=== PATIENT | female | born 1930 | race Caucasian/White ===

== ENCOUNTER 2016-07-21 18:55 | Inpatient (IN) | payer OTHER ==
[~2016-07-21] VITALS: Ht 147.3 cm; Wt 49.3 kg
[~2016-07-21 18:55] MED LIST: ASPI81TA28 PO; LPT/20 PO; MULT-513 PO; OMEG10007 PO
[2016-07-21] MEDS ORDERED: SODIUM CHLORIDE 0.9% 1000ML 500 ML IV STA (20:16)
[2016-07-21] MEDS ORDERED: ONDANSETRON INJ 2 MG/ML 2 ML VIAL IV STA (20:16)
[2016-07-21] MEDS ORDERED: SODIUM CHLORIDE 0.9% 1000ML 1,000 ML IV STA (20:16)
[2016-07-21] MEDS ORDERED: ASPI325T4 PO (20:17)
--- NOTE | 2016-07-21 20:26 | EMERGENCY ROOM VISIT NOTE ---
History Report prepared by Charly: Alexander Guajardo Under the Supervision of: Dr. Noble Gilliland M.D. First contact with patient: 20:12 Chief Complaint: NAUSEA Stated Complaint: NAUSEA, Nursing Triage Summary: Patient reports nausea & abdominal pain that started this am after breakfast. Vomitted x1 in late afternoon. Reports that emesis consisted of food & liquid. Denies any blood. Reports intermittent abdominal pain that continues. BM x1 today-medium size & semi-solid. States, "I had to strain a bit." Patient states , "I have been constipated all my life." Unable to remember last time took laxative. Abdomen appears slightly distended, soft & BM hypoactive x4 quads. Tender to palpation x4 quads. PMHx- cholecystectomy & high cholesterol Patient lives alone in apartment. Kathy helps her with ADL's. Uses walker to ambulate. Arrived BLS History of Present Illness The patient is an 85 year old female who presents to the Emergency Room via ambulance with complaints of persistent vomiting beginning several hours prior to arrival. She currently rates her discomfort as a 5/10 in severity. The patient associates nausea and general abdominal discomfort with today's symptoms. She states she was at [facility] this morning, when she vomited. The patient notes she has not eaten or drank much today. She states she has a history of constipation issues. The patient notes she felt fine yesterday. She denies falling today, a cough, urinary symptoms, fever, and chills. She states she lives alone but has people that check in on her regularly. 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 A total of 10 systems reviewed and were otherwise negative. Past Medical & Surgical Medical Problems: (1) Dyslipidemia (2) History of small bowel obstruction (3) Left ventricular diastolic dysfunction Surgical Problems: (1) H/O colonoscopy (2) S/P cataract surgery (3) S/P cholecystectomy (4) S/P dilation and curettage Family History Patient reports no known family medical history. Social History Smoking Status: Never Smoker Alcohol Use: none Drug Use: none Marital Status: Housing Status: lives alone Occupation Status: retired Current/Historical Medications Scheduled Aspirin (Aspirin), 325 MG PO QAM Atorvastatin (Atorvastatin Calcium), 20 MG PO DAILY Fish Oil ([place]-3), 1 CAP PO DAILY Allergies Coded Allergies: No Known Allergies (Unverified , 07/21/16) Physical Exam Vital Signs Date Time Temp Pulse Resp B/P Pulse Ox O2 Delivery O2 Flow Rate FiO2 07/21/16 23:00 86 20 167/77 94 Room Air 07/21/16 22:00 73 20 163/55 95 Room Air 07/21/16 21:28 80 18 204/77 97 Room Air 07/21/16 20:52 74 07/21/16 20:30 76 15 191/103 100 Room Air 07/21/16 20:00 78 22 164/78 98 Room Air 07/21/16 19:30 73 16 182/72 98 Room Air 07/21/16 19:12 73 18 176/75 99 Room Air 07/21/16 19:00 36.6 74 18 174/105 99 Room Air Physical Exam GENERAL: Patient is in no acute distress. HEENT: No acute trauma, normocephalic atraumatic, mucous membranes dry, no nasal congestion, no scleral icterus. NECK: No stridor, no adenopathy, no meningismus, trachea is midline. LUNGS: Clear to auscultation bilaterally, no wheeze, no rhonchi, breath sounds equal. HEART: 2/6 systolic murmur with a regular rate and rhythm. ABDOMEN: Mildly diffusely tender. Some abdominal distension noted. Soft, bowel sounds positive, no hernias, no peritonitis. EXTREMITIES: No cyanosis or edema, full range of motion of all the joints without pain or difficulty, no signs for acute trauma. NEUROLOGIC: Oriented x 3, no acute motor or sensory deficits, no focal weakness. SKIN: No rash, no jaundice, no diaphoresis. Medical Decision & Procedures ER Provider Diagnostic Interpretation: X ray results and stated below per my interpretation and radiologist interpretation. Other radiology results and stated below per my review and radiologist interpretation: SINGLE VIEW CHEST CLINICAL HISTORY: Generalized abdominal pain. FINDINGS: An AP, portable, upright chest radiograph is compared to study dated 08/19/15. The examination is degraded by portable technique and patient rotation. The cardiomediastinal silhouette is unremarkable. There is atherosclerotic calcification of the thoracic aorta. Chronic interstitial thickening is unchanged from previous. No airspace consolidation, large pleural effusion, or pneumothorax is seen. Biapical scarring is noted. The skeletal structures are osteopenic. Degenerative change and scoliosis are noted in the thoracolumbar spine. Cholecystectomy clips are identified in the right upper quadrant. IMPRESSION: No acute cardiopulmonary abnormality. Electronically signed by: Noble Sorto M.D. 07/21/2016 8:[address] SCAN OF THE ABDOMEN AND PELVIS WITH IV CONTRAST CLINICAL HISTORY: Generalized abdominal pain. COMPARISON STUDY: Abdominal CT dated 08/18/15. TECHNIQUE: Following the IV administration of 120 cc of Optiray 320, CT scan of the abdomen and pelvis is performed from the lung bases to the proximal femora. Images are reviewed in the axial, sagittal, and coronal planes. IV contrast was administered without complication. Automated dose control exposure was utilized. CT DOSE: 274.05 mGy.cm FINDINGS: Lung bases: The heart is mildly enlarged and without pericardial effusion. The coronary arteries, mitral annulus, and aortic valve leaflets are densely calcified. Evaluation of the lung bases is degraded by motion artifact. The lung bases are grossly clear noting dependent atelectasis. Liver: The contrast-enhanced liver is normal in size, contour, and attenuation. There is mild central intrahepatic biliary ductal dilatation. The hepatic veins and portal veins are patent. Gallbladder: Surgically absent noting clips in the gallbladder fossa. Spleen: Normal in size and attenuation. Pancreas: Atrophic and grossly unremarkable. Adrenal glands: Unremarkable. Kidneys: The contrast enhanced kidneys are atrophic and without hydronephrosis. There are small bilateral extrarenal pelvises. The kidneys enhance symmetrically. Abdominal vasculature: The abdominal aorta is normal in course and caliber noting advanced atherosclerotic calcification. Bowel: There is a small hiatal hernia. The stomach and duodenum otherwise normal in configuration. Fluid fills the distal esophagus. The stomach and proximal small bowel are distended and fluid-filled. Small bowel loops measure up to 3.7 cm in diameter. A transition point is identified in the right mid abdomen on axial image #177. The distal small bowel is decompressed and the appearance is consistent with a small bowel obstruction. There is a small volume of interloop fluid. No focally thick walled loops identified. There is no pneumatosis intestinalis or portal venous gas. There is rectosigmoid fecal impaction moderate constipation is observed in the left colon. The right colon is decompressed. There is mild colonic diverticulosis without CT evidence of acute diverticulitis The appendix is not visualized. Peritoneum: There is no intraperitoneal free air or abdominal ascites. Lymphadenopathy: None. Pelvic viscera: The bladder is distended and grossly unremarkable. Calcified uterine fibroids are identified. No adnexal lesion is seen. Skeletal structures: The skeletal structures are osteopenic. There is moderate lumbosacral spondylosis. There are compression deformities of L3 and L4. No lytic or blastic lesions are seen. Arthritic change is noted in the hips. IMPRESSION: 1. Findings are consistent with high-grade small bowel obstruction. A transition point is identified in the right mid abdomen and this is likely on the basis of adhesions. Surgical consultation is advised. 2. There is a small volume of interloop fluid. No focally thick walled bowel loops are identified. There is no pneumatosis intestinalis comment intraperitoneal free air, or portal venous gas. 3. There is rectosigmoid fecal impaction. 4. There is fluid present within the distal esophagus. Note that this may place the patient at risk for aspiration. 5. Additional changes as above. Electronically signed by: Noble Sorto M.D. 07/21/2016 10:51 PM Laboratory Results Test 07/21/16 21:10 07/21/16 22:30 Immature Granulocyte % (Auto) 0.3 % White Blood Count 7.10 K/uL (4.8-10.8) Red Blood Count 4.51 M/uL (4.2-5.4) Hemoglobin 14.5 g/dL (12.0-16.0) Hematocrit 40.9 % (37-47) Mean Corpuscular Volume 90.7 fL (80-100) Mean Corpuscular Hemoglobin 32.2 pg (25-34) Mean Corpuscular Hemoglobin Concent 35.5 g/dl (32-36) Platelet Count 189 K/uL (130-400) Mean Platelet Volume 11.4 fL (7.4-10.4) Neutrophils (%) (Auto) 81.7 % Lymphocytes (%) (Auto) 13.1 % Monocytes (%) (Auto) 4.8 % Eosinophils (%) (Auto) 0.0 % Basophils (%) (Auto) 0.1 % Neutrophils # (Auto) 5.80 K/uL (1.4-6.5) Lymphocytes # (Auto) 0.93 K/uL (1.2-3.4) Monocytes # (Auto) 0.34 K/uL (0.11-0.59) Eosinophils # (Auto) 0.00 K/uL (0-0.5) Basophils # (Auto) 0.01 K/uL (0-0.2) Immature Granulocyte # (Auto) 0.02 K/uL (0.00-0.02) Total Bilirubin 0.7 mg/dl (0.2-1) Aspartate Amino Transf (AST/SGOT) 25 U/L (15-37) Alanine Aminotransferase (ALT/SGPT) 30 U/L (12-78) Alkaline Phosphatase 114 U/L (45-117) Troponin I < 0.015 ng/ml (0-0.045) Total Protein 7.6 gm/dl (6.4-8.2) Albumin 4.0 gm/dl (3.4-5.0) Globulin 3.6 gm/dl (2.5-4.0) Albumin/Globulin Ratio 1.1 (0.9-2) Lipase 119 U/L (73-393) Urine Color YELLOW Urine Appearance CLOUDY (CLEAR) Urine pH 8.0 (4.5-7.5) Urine Specific [place] 1.003 (1.000-1.030) Urine Protein NEG (NEG) Urine Glucose (UA) NEG (NEG) Urine Ketones 1+ (NEG) Urine Occult Blood NEG (NEG) Urine Nitrite NEG (NEG) Urine Bilirubin NEG (NEG) Urine Urobilinogen NEG (NEG) Urine Leukocyte Esterase NEG (NEG) Urine WBC (Auto) 1-5 /hpf (0-5) Urine RBC (Auto) 0-4 /hpf (0-4) Urine Hyaline Casts (Auto) 1-5 /lpf (0-5) Urine Epithelial Cells (Auto) 5-10 /lpf (0-5) Urine Bacteria (Auto) NEG (NEG) Laboratory results reviewed by me. Medications Administered Medications (Trade) Dose Ordered Sig/Wilver Route Start Time Stop Time Status Last Admin Dose Admin Sodium Chloride (Nss 1000ml) 500 ml @ 999 mls/hr Q31M STAT IV 07/21/16 20:16 07/21/16 20:46 DC 07/21/16 21:27 999 MLS/HR Ondansetron HCl 4 mg 4 mg NOW STAT IV 07/21/16 20:16 07/21/16 20:19 DC 07/21/16 21:27 4 MG Sodium Chloride (Nss 1000ml) 1,000 ml @ 125 mls/hr Q8H STAT IV 07/21/16 20:16 07/22/16 01:24 DC 07/21/16 21:35 125 MLS/HR ECG Indication: vomiting Rate (beats per minute): 72 Rhythm: normal sinus Findings: RBBB, no ectopy Comparison ECG Date: 12/15/2013 Change: RBBB is new. ED Course 2011: The patient was evaluated in room B4B. A complete history and physical exam was performed. 2016: Ordered Sodium Chloride 1,000 ml @ 125 mls/hr IV, Zofran Inj 4 mg IV, Sodium Chloride 500 ml @ 999 mls/hr IV. 2301: Reevaluated the patient at this time and updated her. 2303: I spoke to CONSTANTINE Martinez (General Surgery) about the patient's case , and he states the patient can go to the medicine service. He will see the patient in the morning. 2322: I spoke to Susan Morel (Hospitalist) about the patient's case, and he will follow the patient for further evaluation. Medical Decision The differential diagnoses include but are not limited to: bowel obstruction, constipation, dehydration, electrolyte imbalance, UTI, viral illness, anemia, pneumonia, cardiac ischemia. There is no leukocytosis or concerning anemia. No significant electrolyte abnormality, kidney failure or hepatitis. There is no pancreatitis. Chest film shows no free air or pneumonia. EKG shows a sinus rhythm, no acute ischemia. Cardiac enzyme testing times one is not consistent with acute cardiac injury. Abdominal and pelvis CT shows a small bowel obstruction. Urinalysis does not show infection. The patient received IV Zofran and IV saline, she did not require anything for pain. The patient had an NG tube placed given the findings. I talked with general surgery, I did talk with general medicine. I spoke with case management. I went over all findings with the patient and family. Admission/observation is warranted. Consults Time Called: [phone] Consulting Physician: CONSTANTINE Martinez (General Surgery) Returned Call: [phone] I spoke to DONALD MartinezG (General Surgery) about the patient's case, and he states the patient can go to the medicine service. He will see the patient in the morning. Additional Consults: Time Called: 0 Consulted Physician: Susan Morel (Hospitalist) Returned Call: [phone] Additional Comments: I spoke to Susan Morel (Hospitalist) about the patient's case, and he will follow the patient for further evaluation. Impression Primary Impression: Small bowel obstruction Scribe Attestation The scribe's documentation has been prepared under my direction and personally reviewed by me in its entirety. I confirm that the note above accurately reflects all work, treatment, procedures, and medical decision making performed by me. Departure Information Dispostion Being Evaluated By Hospitalist (Susan Morel (Hospitalist)) Referrals Mike Lopez M.D. (PCP)
[2016-07-21] MEDS ORDERED: OPTIRAY 320 IV PRN (20:30)
--- NOTE | 2016-07-21 20:40 | DIAGNOSTIC IMAGING REPORT ---
SINGLE VIEW CHEST CLINICAL HISTORY: Generalized abdominal pain. FINDINGS: An AP, portable, upright chest radiograph is compared to study dated 08/19/15. The examination is degraded by portable technique and patient rotation. The cardiomediastinal silhouette is unremarkable. There is atherosclerotic calcification of the thoracic aorta. Chronic interstitial thickening is unchanged from previous. No airspace consolidation, large pleural effusion, or pneumothorax is seen. Biapical scarring is noted. The skeletal structures are osteopenic. Degenerative change and scoliosis are noted in the thoracolumbar spine. Cholecystectomy clips are identified in the right upper quadrant. IMPRESSION: No acute cardiopulmonary abnormality. Electronically signed by: Noble Sorto M.D. 07/21/2016 8:39 PM Dictated Date/Time: 07/21/2016 8:38 PM
[2016-07-21 21:23] LABS: BASO % 0.1 %; BASO ABS # 0.01 K/uL (0-0.2); COMPLETE YES; HEMATOCRIT 40.9 % (37-47); IG% 0.3 %; LYMPH % 13.1 %; LYMPH ABS # 0.93 K/uL (1.2-3.4); MEAN CELL VOLUME 90.7 fL (80-100); MEAN CORPUSCULAR HEMOGLOBIN 32.2 pg (25-34); MEAN CORPUSCULAR HGB CONC 35.5 g/dl (32-36); MEAN PLATELET VOLUME 11.4 fL (7.4-10.4); MONO % 4.8 %; NEUT % 81.7 %; PLATELET COUNT 189 K/uL (130-400); RED BLOOD COUNT 4.51 M/uL (4.2-5.4)
[2016-07-21 21:42] LABS: ALT/SGPT 30 U/L (12-78); AST/SGOT 25 U/L (15-37); BLOOD UREA NITROGEN 20 mg/dl (7-18); BUN/CREATININE RATIO 26.7 (10-20); CALCIUM 10.1 mg/dl (8.5-10.1); CARBON DIOXIDE 29 mmol/L (21-32); CHLORIDE 98 mmol/L (98-107); CREATININE 0.76 mg/dl (0.60-1.20); GLUCOSE 107 mg/dl (70-99); SODIUM 139 mmol/L (136-145)
[2016-07-21 21:46] LABS: ALB/GLOB RATIO 1.1 (0.9-2); ALKALINE PHOSPHATASE 114 U/L (45-117)
[2016-07-21 22:50] LABS: MANUAL MICROSCOPIC REQUIRED? NO; REVIEW REQ? NO; URINE APPEARANCE CLOUDY (CLEAR); URINE BILIRUBIN NEG (NEG); URINE COLOR YELLOW; URINE NITRITE NEG (NEG); URINE SPECIFIC GRAVITY 1.003 (1.000-1.030); UROBILINOGEN NEG (NEG); ZZUR CULT IF INDIC CLEAN CATCH NO
--- NOTE | 2016-07-21 22:53 | DIAGNOSTIC IMAGING REPORT ---
CT SCAN OF THE ABDOMEN AND PELVIS WITH IV CONTRAST CLINICAL HISTORY: Generalized abdominal pain. COMPARISON STUDY: Abdominal CT dated 08/18/15. TECHNIQUE: Following the IV administration of 120 cc of Optiray 320, CT scan of the abdomen and pelvis is performed from the lung bases to the proximal femora. Images are reviewed in the axial, sagittal, and coronal planes. IV contrast was administered without complication. Automated dose control exposure was utilized. CT DOSE: 274.05 mGy.cm FINDINGS: Lung bases: The heart is mildly enlarged and without pericardial effusion. The coronary arteries, mitral annulus, and aortic valve leaflets are densely calcified. Evaluation of the lung bases is degraded by motion artifact. The lung bases are grossly clear noting dependent atelectasis. Liver: The contrast-enhanced liver is normal in size, contour, and attenuation. There is mild central intrahepatic biliary ductal dilatation. The hepatic veins and portal veins are patent. Gallbladder: Surgically absent noting clips in the gallbladder fossa. Spleen: Normal in size and attenuation. Pancreas: Atrophic and grossly unremarkable. Adrenal glands: Unremarkable. Kidneys: The contrast enhanced kidneys are atrophic and without hydronephrosis. There are small bilateral extrarenal pelvises. The kidneys enhance symmetrically. Abdominal vasculature: The abdominal aorta is normal in course and caliber noting advanced atherosclerotic calcification. Bowel: There is a small hiatal hernia. The stomach and duodenum otherwise normal in configuration. Fluid fills the distal esophagus. The stomach and proximal small bowel are distended and fluid-filled. Small bowel loops measure up to 3.7 cm in diameter. A transition point is identified in the right mid abdomen on axial image #177. The distal small bowel is decompressed and the appearance is consistent with a small bowel obstruction. There is a small volume of interloop fluid. No focally thick walled loops identified. There is no pneumatosis intestinalis or portal venous gas. There is rectosigmoid fecal impaction moderate constipation is observed in the left colon. The right colon is decompressed. There is mild colonic diverticulosis without CT evidence of acute diverticulitis The appendix is not visualized. Peritoneum: There is no intraperitoneal free air or abdominal ascites. Lymphadenopathy: None. Pelvic viscera: The bladder is distended and grossly unremarkable. Calcified uterine fibroids are identified. No adnexal lesion is seen. Skeletal structures: The skeletal structures are osteopenic. There is moderate lumbosacral spondylosis. There are compression deformities of L3 and L4. No lytic or blastic lesions are seen. Arthritic change is noted in the hips. IMPRESSION: 1. Findings are consistent with high-grade small bowel obstruction. A transition point is identified in the right mid abdomen and this is likely on the basis of adhesions. Surgical consultation is advised. 2. There is a small volume of interloop fluid. No focally thick walled bowel loops are identified. There is no pneumatosis intestinalis comment intraperitoneal free air, or portal venous gas. 3. There is rectosigmoid fecal impaction. 4. There is fluid present within the distal esophagus. Note that this may place the patient at risk for aspiration. 5. Additional changes as above. Electronically signed by: Noble Sorto M.D. 07/21/2016 10:51 PM Dictated Date/Time: 07/21/2016 10:42 PM
--- NOTE | 2016-07-21 23:35 | History and Physical ---
History & Physical Date & Time of Service: Jul 21, 2016 at 23:35 . Chief Complaint: abdominal pain, nausea, vomiting . Primary Care Physician: . History of Present Illness Source: patient, clinic records, hospital records 85 YO female followed by Dr. Elvia Carney. Admitted for small bowel obstruction July 2015. SBO attributed to adhesions from prior abdominal surgery. Bowel obstruction resolved with conservative management. Patient presented to ED [facility] with abdominal distention, nausea, vomiting. She is uncertain about the exact onset of symptoms- either this morning or perhaps yesterday. No hematemesis. Last bowel movement 1-2 days ago; no melena or hematochezia. She did not try any medications at home for relief of her symptoms. Abdominal distention and nausea have been constant during the day. . Past Medical/Surgical History Chronic and Resolved Medical Problems: (1) Dyslipidemia Status: Chronic (2) History of small bowel obstruction Permanent Comment: Jul 2015. Resolved with conservative management (NGT, bowel rest). Status: Chronic (3) Left ventricular diastolic dysfunction Status: Chronic Surgical Problems: (1) H/O colonoscopy Status: Chronic (2) S/P cataract surgery Status: Chronic (3) S/P cholecystectomy Status: Chronic (4) S/P dilation and curettage Status: Chronic . Family History MOTHER Arthritis Social History Smoking Status: Never Smoker Alcohol Use: none Drug Use: none Marital Status: Housing status: lives alone Occupational Status: retired Immunizations History of Influenza Vaccine: Yes Multi-Drug Resistant Organisms History of MDRO: No Allergies Coded Allergies: No Known Allergies (Unverified , 07/21/16) Home Medications Scheduled Aspirin (Aspirin), 325 MG PO QAM Atorvastatin (Atorvastatin Calcium), 20 MG PO DAILY Fish Oil ([place]-3), 1 CAP PO DAILY Review of Systems Constitutional: No fever, No weight loss Eyes: No diplopia, No worsening of vision ENT: + hearing loss, No nasal symptoms, No sore throat Respiratory: No cough, No shortness of breath Cardiovascular: No chest pain, No edema Abdomen: + problem reported (as noted above) Musculoskeletal: + joint pain Genitourinary - Female: No dysuria, No hematuria Endocrine: No excessive thirst, No excessive urination Hematologic / Lymphatic: No abnormal bleeding/bruising, No swollen lymph nodes Integumentary: No itch, No new/changing skin lesions, No rash Physical Exam Vital Signs Date Time Temp Pulse Resp B/P Pulse Ox O2 Delivery O2 Flow Rate FiO2 07/21/16 21:28 80 18 204/77 97 Room Air 07/21/16 20:52 74 07/21/16 20:30 76 15 191/103 100 Room Air 07/21/16 20:00 78 22 164/78 98 Room Air 07/21/16 19:30 73 16 182/72 98 Room Air 07/21/16 19:12 73 18 176/75 99 Room Air 07/21/16 19:00 36.6 74 18 174/105 99 Room Air General Appearance: + moderate distress, + thin Head: normocephalic, atraumatic Eyes: normal inspection, PERRL, EOMI, sclerae normal, + pertinent finding ( conjunctivae pink) ENT: normal ENT inspection, + pertinent finding (hard of hearing) Neck: supple, no adenopathy, thyroid normal, no JVD, trachea midline Respiratory/Chest: lungs clear, no respiratory distress, no accessory muscle use Cardiovascular: regular rate, rhythm, no edema, no gallop, no JVD Abdomen/GI: + pertinent finding (quiet bowel sounds, moderately distended, soft , diffuse mild tenderness without rebound or guarding) Extremities/Musculoskelatal: normal inspection, no calf tenderness, normal capillary refill, no pedal edema Neurologic/Psych: wrapper dipper II-XII nml as tested (PERRL, EOMI), alert, normal mood/ affect, + disoriented (mild confusion) Skin: normal color, warm/dry, no rash Lymphatic: no adenopathy Diagnostics Laboratory Results Results Past 24 Hours Test 07/21/16 21:10 07/21/16 22:30 Range/Units White Blood Count 7.10 4.8-10.8 K/uL Red Blood Count 4.51 4.2-5.4 M/uL Hemoglobin 14.5 12.0-16.0 g/dL Hematocrit 40.9 37-47 % Mean Corpuscular Volume 90.7 80-100 fL Mean Corpuscular Hemoglobin 32.2 25-34 pg Mean Corpuscular Hemoglobin Concent 35.5 32-36 g/dl Platelet Count 189 130-400 K/uL Mean Platelet Volume 11.4 7.4-10.4 fL Neutrophils (%) (Auto) 81.7 % Lymphocytes (%) (Auto) 13.1 % Monocytes (%) (Auto) 4.8 % Eosinophils (%) (Auto) 0.0 % Basophils (%) (Auto) 0.1 % Neutrophils # (Auto) 5.80 1.4-6.5 K/uL Lymphocytes # (Auto) 0.93 1.2-3.4 K/uL Monocytes # (Auto) 0.34 0.11-0.59 K/uL Eosinophils # (Auto) 0.00 0-0.5 K/uL Basophils # (Auto) 0.01 0-0.2 K/uL RDW Standard Deviation 46.3 36.4-46.3 fL RDW Coefficient of Variation 14.0 11.5-14.5 % Immature Granulocyte % (Auto) 0.3 % Immature Granulocyte # (Auto) 0.02 0.00-0.02 K/uL Sodium Level 139 136-145 mmol/L Potassium Level 4.0 3.5-5.1 mmol/L Chloride Level 98 98-107 mmol/L Carbon Dioxide Level 29 21-32 mmol/L Anion Gap 12.0 3-11 mmol/L Blood Urea Nitrogen 20 7-18 mg/dl Creatinine 0.76 0.60-1.20 mg/dl Est Creatinine Clear Calc Drug Dose 37.0 ml/min Estimated GFR () 81.7 Estimated GFR (Non- 70.5 BUN/Creatinine Ratio 26.7 10-20 Random Glucose 107 70-99 mg/dl Calcium Level 10.1 8.5-10.1 mg/dl Total Bilirubin 0.7 0.2-1 mg/dl Aspartate Amino Transf (AST/SGOT) 25 15-37 U/L Alanine Aminotransferase (ALT/SGPT) 30 12-78 U/L Alkaline Phosphatase 114 45-117 U/L Troponin I < 0.015 0-0.045 ng/ml Total Protein 7.6 6.4-8.2 gm/dl Albumin 4.0 3.4-5.0 gm/dl Globulin 3.6 2.5-4.0 gm/dl Albumin/Globulin Ratio 1.1 0.9-2 Lipase 119 73-393 U/L Urine Color YELLOW Urine Appearance CLOUDY CLEAR Urine pH 8.0 4.5-7.5 Urine Specific [place] 1.003 1.000-1.030 Urine Protein NEG NEG Urine Glucose (UA) NEG NEG Urine Ketones 1+ NEG Urine Occult Blood NEG NEG Urine Nitrite NEG NEG Urine Bilirubin NEG NEG Urine Urobilinogen NEG NEG Urine Leukocyte Esterase NEG NEG Urine WBC (Auto) 1-5 0-5 /hpf Urine RBC (Auto) 0-4 0-4 /hpf Urine Hyaline Casts (Auto) 1-5 0-5 /lpf Urine Epithelial Cells (Auto) 5-10 0-5 /lpf Urine Bacteria (Auto) NEG NEG Diagnostic Radiology SINGLE VIEW CHEST IMPRESSION: No acute cardiopulmonary abnormality. Electronically signed by: Noble Sorto M.D. 07/21/2016 8:[address] SCAN OF THE ABDOMEN AND PELVIS WITH IV CONTRAST IMPRESSION: 1. Findings are consistent with high-grade small bowel obstruction. A transition point is identified in the right mid abdomen and this is likely on the basis of adhesions. Surgical consultation is advised. 2. There is a small volume of interloop fluid. No focally thick walled bowel loops are identified. There is no pneumatosis intestinalis comment intraperitoneal free air, or portal venous gas. 3. There is rectosigmoid fecal impaction. 4. There is fluid present within the distal esophagus. Note that this may place the patient at risk for aspiration. 5. Additional changes as above. Electronically signed by: Noble Sorto M.D. 07/21/2016 10:51 PM . Impression Assessment and Plan RECURRENT SMALL BOWEL OBSTRUCTION Probably due to underlying adhesions. NGT inserted in ED. General Surgery consulted- ED physician discussed case with surgeon contour sander. Bowel rest, IV fluids, analgesics PRN, anti-emetics PRN. HISTORY LV DIASTOLIC DYSFUNCTION No signs of CHF. Follow. ELEVATED BP's BP's high in ED. Probably episodic elevation due to GI symptoms. Follow. IV enalapril PRN. VTE PROPHYLAXIS No anticoagulation at this time in case surgical intervention necessary. SCD's. Ambulate. RESUSCITATION STATUS Full code. DISPOSITION Admit to Med-Surg Unit. Expected discharge to home. Family Medicine follow-up with Dr. Elvia Carney. . VTE Prophylaxis VTE Risk Assessment Done? Y/N: Yes Risk Level: Moderate Given or contraindicated: SCD's
[2016-07-21] MEDS ORDERED: ONDANSETRON INJ 2 MG/ML 2 ML VIAL ONE (23:45)
[2016-07-21] MEDS ORDERED: ONDANSETRON INJ 2 MG/ML 2 ML VIAL IV PRN (23:45)
[2016-07-22] MEDS ORDERED: ACETAMINOPHEN IV 100 ML IV PRN (00:45)
[2016-07-22 00:52] VITALS: BP 177/69; PULSE 82; TEMP 36.5; O2SAT 94
[2016-07-22] MEDS: D5W AND LACTATED RINGERS 1,000 ML IV SCH ×3 (01:42→16:32)
[2016-07-22 04:06] VITALS: BP 177/69; PULSE 82; TEMP 36.5; O2SAT 95; Ht 147.3 cm; Wt 49.3 kg
[2016-07-22 06:10] LABS: HEMATOCRIT 40.2 % (37-47); MEAN CELL VOLUME 90.7 fL (80-100); MEAN CORPUSCULAR HEMOGLOBIN 30.7 pg (25-34); MEAN CORPUSCULAR HGB CONC 33.8 g/dl (32-36); MEAN PLATELET VOLUME 11.9 fL (7.4-10.4); PLATELET COUNT 192 K/uL (130-400); RED BLOOD COUNT 4.43 M/uL (4.2-5.4); WHITE BLOOD COUNT 9.25 K/uL (4.8-10.8)
[2016-07-22 06:39] LABS: BUN/CREATININE RATIO 21.3 (10-20); CALCIUM 9.3 mg/dl (8.5-10.1); CREATININE 0.76 mg/dl (0.60-1.20); MAGNESIUM 2.3 mg/dl (1.8-2.4); POTASSIUM 3.5 mmol/L (3.5-5.1)
[2016-07-22 07:47] VITALS: BP 147/61; PULSE 76; TEMP 36.4; O2SAT 98
--- NOTE | 2016-07-22 07:51 | CONSULTATION REPORT ---
DATE OF CONSULTATION: 07/22/2016 HISTORY OF PRESENT ILLNESS: We were asked to see Ms. Escobar by the ER physician who came in with a bowel obstruction. I did talk to Dr. Gilliland last night from the ER. There was no acute surgical problem at that time and she was fairly comfortable. An NG tube would be inserted and I would see her later on in the evening and sharemilker. As I see her this morning, she is lying in bed with an NG tube in place, very comfortable. She states she has some abdominal pain, but she states empirically she does not want any surgery. I looked over her past medical history and interestingly enough she was here about a year ago at the same time with a similar picture and then she resolve without surgery. PAST MEDICAL HISTORY: Positive for having open cholecystectomy in the past. MEDICATIONS AT HOME: Included aspirin, calcium, and fish oil. PAST SURGICAL HISTORY: Other than the appendectomy and cholecystectomy, she had no previous surgery. Her symptomatology starting yesterday was increased abdominal distention. PHYSICAL EXAMINATION: GENERAL: Today, the patient as stated is in no acute distress. She is relatively comfortable while she has an NG tube in place. She is coherent and in no acute distress. VITAL SIGNS: Her last vitals showed a temperature of 36.5, pulse 82, respirations 20, blood pressure 177/69 and O2 sats 95 on room air. NG tube in place and drained 375 since insertion. ABDOMEN: Softly distended. There is no tenderness, no guarding. EXTREMITIES: Grossly normal. ASSESSMENT AND PLAN: As I am examining her, she feels like she needs to move her bowels at this time. In summary, we have a patient who has a recurrent small bowel obstruction by CAT scan in a similar place that she had a year ago. She resolved nonsurgically and hopefully she will do the same thing at this time. Once again, she does not want any surgery and I told her we would only consider that as a last resort if she wanted when there are no other options. She is agreeable to that. LEISA
[2016-07-22 15:12] VITALS: BP 121/65; PULSE 69; TEMP 36.5; O2SAT 96
--- NOTE | 2016-07-22 21:21 | Progress Note ---
Medicine Progress Note Date & Time of Visit: Jul 22, 2016 at 21:17. Subjective Patient seen and examined. Minimal abdominal pain. No BM. Passing flatus. Feels hungry. Objective Last 8 Hrs Date Time Temp Pulse Resp B/P Pulse Ox O2 Delivery O2 Flow Rate FiO2 07/22/16 16:00 Room Air 07/22/16 15:12 36.5 69 18 121/65 96 Room Air Physical Exam: General-awake; alert; NAD Eyes-EOMI; no scleral icterus ENT-NG tube intact Neck-no stridor; trachea midline Lungs-CTA bilaterally; no wheezes/crackles Heart-RRR; no m/r/g Abdomen-soft; mild midline tenderness to palpation; ND Extremities-no c/c/e; no deformity Neuro-no gross focal deficits; oriented to person Laboratory Results: Last 24 Hours Test 07/21/16 22:30 07/22/16 05:15 Urine Color YELLOW Urine Appearance CLOUDY Urine pH 8.0 Urine Specific [place] 1.003 Urine Protein NEG Urine Glucose (UA) NEG Urine Ketones 1+ Urine Occult Blood NEG Urine Nitrite NEG Urine Bilirubin NEG Urine Urobilinogen NEG Urine Leukocyte Esterase NEG Urine WBC (Auto) 1-5 /hpf Urine RBC (Auto) 0-4 /hpf Urine Hyaline Casts (Auto) 1-5 /lpf Urine Epithelial Cells (Auto) 5-10 /lpf Urine Bacteria (Auto) NEG White Blood Count 9.25 K/uL Red Blood Count 4.43 M/uL Hemoglobin 13.6 g/dL Hematocrit 40.2 % Mean Corpuscular Volume 90.7 fL Mean Corpuscular Hemoglobin 30.7 pg Mean Corpuscular Hemoglobin Concent 33.8 g/dl RDW Standard Deviation 46.4 fL RDW Coefficient of Variation 14.0 % Platelet Count 192 K/uL Mean Platelet Volume 11.9 fL Sodium Level 141 mmol/L Potassium Level 3.5 mmol/L Chloride Level 101 mmol/L Carbon Dioxide Level 31 mmol/L Anion Gap 9.0 mmol/L Blood Urea Nitrogen 16 mg/dl Creatinine 0.76 mg/dl Est Creatinine Clear Calc Drug Dose 36.4 ml/min Estimated GFR () 81.7 Estimated GFR (Non- 70.5 BUN/Creatinine Ratio 21.3 Random Glucose 128 mg/dl Calcium Level 9.3 mg/dl Magnesium Level 2.3 mg/dl Assessment & Plan RECURRENT SMALL BOWEL OBSTRUCTION Probably due to underlying adhesions. NGT inserted in ED. General Surgery consulted. Bowel rest, IV fluids, analgesics PRN, anti-emetics PRN. HISTORY LV DIASTOLIC DYSFUNCTION No signs of CHF. Follow. ELEVATED BP's BP's high in ED. Probably episodic elevation due to GI symptoms. Improved. VTE PROPHYLAXIS No anticoagulation at this time in case surgical intervention necessary. SCD's. Ambulate. RESUSCITATION STATUS Full code. DISPOSITION Admit to Med-Surg Unit. Patient requesting referral to [facility]. PT/OT evaluations. Family Medicine follow-up with Dr. Elvia Carney. Consultants: General surgery Procedures: CT a/p 1. Findings are consistent with high-grade small bowel obstruction. A transition point is identified in the right mid abdomen and this is likely on the basis of adhesions. Surgical consultation is advised. 2. There is a small volume of interloop fluid. No focally thick walled bowel loops are identified. There is no pneumatosis intestinalis comment intraperitoneal free air, or portal venous gas. 3. There is rectosigmoid fecal impaction. 4. There is fluid present within the distal esophagus. Note that this may place the patient at risk for aspiration. Current Inpatient Medications: Current Inpatient Medications Medications (Trade) Dose Ordered Sig/Wilver Route Start Time Stop Time Status Last Admin Dose Admin Ioversol (Optiray 320) 125 ml UD PRN IV 07/21/16 20:30 07/25/16 20:29 Ondansetron HCl 4 mg 4 mg Q6H PRN IV 07/21/16 23:45 08/20/16 23:44 Dextrose/Lactated Ringer's 1,000 ml @ 125 mls/hr Q8H IV 07/22/16 01:30 08/21/16 01:29 07/22/16 16:32 125 MLS/HR Acetaminophen 100 ml @ 400 mls/hr Q8H PRN IV 07/22/16 00:45 08/21/16 00:44 Enalaprilat/ Dextrose (Vasotec IV/D5 25ml) 25.5 ml @ 100 mls/hr Q6H PRN IV 07/22/16 07:00 08/21/16 06:59
[2016-07-22 23:00] VITALS: BP 134/71; PULSE 66; TEMP 36.5; O2SAT 95
[2016-07-23] MEDS: D5W AND LACTATED RINGERS 1,000 ML IV SCH ×3 (00:30→16:41)
[2016-07-23 07:09] VITALS: BP 150/70; PULSE 66; TEMP 36.5; O2SAT 96
--- NOTE | 2016-07-23 08:26 | SURGERY PROGRESS NOTE ---
DATE: 07/23/2016 HISTORY OF PRESENT ILLNESS: Britney is resting comfortable. She is not voicing any abdominal discomfort, although she has not had any true activity per rectum. She is alert and coherent. The NG tube is in place. It is draining, a total of 600 mL overnight. Her urine output was 1050. There are contents of her mid small bowel. The abdomen is pretty much unchanged from yesterday. There is no tenderness, but no overt distention. ASSESSMENT AND PLAN: The patient still refuses surgery at this time, which I think is going to eventually needed for just a degree of obstruction, but at this point, we will just follow her for a KUB and a 2-view acute abdominal series to see the pattern. Certainly, there is no acute abdominal problem at this time and it is just a matter of time whether she should convert to having surgery or likely decide to have surgery or hopefully, she may avoid it and resolve as she had about a year ago.
--- NOTE | 2016-07-23 08:36 | DIAGNOSTIC IMAGING REPORT ---
ABDOMEN 2 VIEWS CLINICAL HISTORY: Follow-up small bowel obstruction. FINDINGS: Supine and erect abdominal radiograph are correlated with abdominal CT dated 07/21/2016. An enteric tube has been placed. The tip projects over the mid stomach. Cholecystectomy clips are noted. There is mild gaseous distention of the proximal small bowel loops which measure up to 3.5 cm. Air-fluid levels are seen on the upright view. No intraperitoneal free air is seen. Gas and stool are noted in the colon. Rectosigmoid fecal impaction is again seen. The bladder appears distended. There is advanced atherosclerotic calcification of the abdominal aorta and iliac vessels. The skeletal structures are osteopenic. Lumbosacral spondylosis is observed. IMPRESSION: 1. An enteric tube has been placed. The tip projects over the mid stomach. 2. Findings are consistent with persistent small bowel obstruction. The degree of gaseous distention has modestly improved from yesterday. 3. Rectosigmoid fecal impaction is again noted. Electronically signed by: Noble Sorto M.D. 07/23/2016 8:35 AM Dictated Date/Time: 07/23/2016 8:33 AM
[2016-07-23] MEDS ORDERED: BISACODYL 10 MG SUPP PR PRN (09:30)
[2016-07-23 12:00] VITALS: BP 154/73; PULSE 74; O2SAT 99
[2016-07-23 15:30] VITALS: BP 122/68; PULSE 60; TEMP 36.8; O2SAT 97
--- NOTE | 2016-07-23 18:36 | Progress Note ---
Medicine Progress Note Date & Time of Visit: Jul 23, 2016 at 18:32. Subjective Patient seen and examined. States that she feels hungry. Denies abdominal pain. Had a large BM earlier today. Objective Last 8 Hrs Date Time Temp Pulse Resp B/P Pulse Ox O2 Delivery O2 Flow Rate FiO2 07/23/16 16:00 Room Air 07/23/16 15:30 36.8 60 16 122/68 97 Room Air 07/23/16 12:00 74 99 Physical Exam: General-awake; alert; NAD Eyes-EOMI; no scleral icterus ENT-NG tube intact Neck-no stridor; trachea midline Lungs-CTA bilaterally; no wheezes/crackles Heart-RRR; no m/r/g Abdomen-soft; mild midline tenderness to palpation; ND Extremities-no c/c/e; no deformity Neuro-no gross focal deficits; oriented to person and place Assessment & Plan RECURRENT SMALL BOWEL OBSTRUCTION Probably due to underlying adhesions. NGT inserted in ED. General Surgery consulted. Bowel rest, IV fluids, analgesics PRN, anti-emetics PRN. HISTORY LV DIASTOLIC DYSFUNCTION No signs of CHF. Follow. ELEVATED BP's BP's high in ED. Probably episodic elevation due to GI symptoms. Improved. VTE PROPHYLAXIS No anticoagulation at this time in case surgical intervention necessary. SCD's. Ambulate. RESUSCITATION STATUS Full code. DISPOSITION Patient requesting referral to [facility]. PT/OT evaluations. Recommend discharge to acute rehab. Family Medicine follow-up with Dr. Elvia Carney. Consultants: General surgery Procedures: CT a/p 1. Findings are consistent with high-grade small bowel obstruction. A transition point is identified in the right mid abdomen and this is likely on the basis of adhesions. Surgical consultation is advised. 2. There is a small volume of interloop fluid. No focally thick walled bowel loops are identified. There is no pneumatosis intestinalis comment intraperitoneal free air, or portal venous gas. 3. There is rectosigmoid fecal impaction. 4. There is fluid present within the distal esophagus. Note that this may place the patient at risk for aspiration. Current Inpatient Medications: Current Inpatient Medications Medications (Trade) Dose Ordered Sig/Wilver Route Start Time Stop Time Status Last Admin Dose Admin Ioversol (Optiray 320) 125 ml UD PRN IV 07/21/16 20:30 07/25/16 20:29 Ondansetron HCl 4 mg 4 mg Q6H PRN IV 07/21/16 23:45 08/20/16 23:44 Dextrose/Lactated Ringer's 1,000 ml @ 125 mls/hr Q8H IV 07/22/16 01:30 08/21/16 01:29 07/23/16 16:41 125 MLS/HR Acetaminophen 100 ml @ 400 mls/hr Q8H PRN IV 07/22/16 00:45 08/21/16 00:44 Enalaprilat/ Dextrose (Vasotec IV/D5 25ml) 25.5 ml @ 100 mls/hr Q6H PRN IV 07/22/16 07:00 08/21/16 06:59 Bisacodyl (Dulcolax Supp) 10 mg ONE PRN HI 07/23/16 09:30 08/22/16 09:29
[2016-07-23 23:00] VITALS: BP 154/64; PULSE 60; TEMP 36.6; O2SAT 97
[2016-07-24] VITALS (8 sets, daily range): BP systolic 128–192; BP diastolic 46–77; PULSE 50–76; TEMP 36.5–36.8; O2SAT 96–100
[2016-07-24] MEDS: D5W AND LACTATED RINGERS 1,000 ML IV SCH ×2 (00:06→10:07)
[2016-07-24] MEDS: ENALAPRILAT IV 0.625 MG in DEXTROSE 5% 25ML 25 ML IV PRN ×2 (01:05→23:22)
--- NOTE | 2016-07-24 08:18 | SURGERY PROGRESS NOTE ---
DATE: 07/24/2016 Britney is doing well. She had a large bowel movement yesterday. Her last vitals showed a temperature of 36.6, pulse 60, respirations 14, blood pressure 154/66. She is alert, coherent, the NG tube in place, I left it in yesterday after a bowel movement because I was concerned that she still had a proximal obstruction, but the drainage has subsided, it is only 100 mL overnight. The abdomen is completely benign. At this point, we will discontinue the NG tube and start her on clear liquid diet and advance slowly. I would certainly give her low-fiber diet on discharge, possibly mechanical soft. From my point of view, if she tolerates her diet today and if she is stable, most likely she can be discharged tomorrow.
--- NOTE | 2016-07-24 16:21 | Progress Note ---
Medicine Progress Note Date & Time of Visit: Jul 24, 2016 at 16:17. Subjective Patient seen and examined. Family present at bedside. NGT removed today. Patient tolerating clear liquid diet. Denies abdominal pain, nausea, vomiting. Had a very large BM yesterday. Objective Last 8 Hrs Date Time Temp Pulse Resp B/P Pulse Ox O2 Delivery O2 Flow Rate FiO2 07/24/16 15:34 36.6 68 18 128/46 97 Room Air 07/24/16 15:30 Room Air 07/24/16 11:52 36.6 52 18 132/56 96 Room Air 07/24/16 09:14 100 Room Air 07/24/16 08:27 36.5 50 18 150/60 100 Room Air Physical Exam: General-awake; alert; NAD Eyes-EOMI; no scleral icterus Neck-no stridor; trachea midline Lungs-CTA bilaterally; no wheezes/crackles Heart-RRR; no m/r/g Abdomen-soft; NTND; nBS Extremities-no c/c/e; no deformity Neuro-no gross focal deficits Assessment & Plan RECURRENT SMALL BOWEL OBSTRUCTION Probably due to underlying adhesions. NGT inserted in ED. Removed today. General Surgery consulted. Resolved with conservative measures: bowel rest, IV fluids, analgesics PRN, anti -emetics PRN. HISTORY LV DIASTOLIC DYSFUNCTION No signs of CHF. Follow. ELEVATED BP's BP's high in ED. Probably episodic elevation due to GI symptoms. Improved. VTE PROPHYLAXIS No anticoagulation at this time in case surgical intervention necessary. SCD's. Ambulate. RESUSCITATION STATUS Full code. DISPOSITION Patient requesting referral to [facility]. PT/OT evaluations. Recommend discharge to acute rehab. Family Medicine follow-up with Dr. Elvia Carney. Consultants: General surgery Procedures: CT a/p 1. Findings are consistent with high-grade small bowel obstruction. A transition point is identified in the right mid abdomen and this is likely on the basis of adhesions. Surgical consultation is advised. 2. There is a small volume of interloop fluid. No focally thick walled bowel loops are identified. There is no pneumatosis intestinalis comment intraperitoneal free air, or portal venous gas. 3. There is rectosigmoid fecal impaction. 4. There is fluid present within the distal esophagus. Note that this may place the patient at risk for aspiration. Current Inpatient Medications: Current Inpatient Medications Medications (Trade) Dose Ordered Sig/[place] Route Start Time Stop Time Status Last Admin Dose Admin Ioversol (Optiray 320) 125 ml UD PRN IV 07/21/16 20:30 07/25/16 20:29 Ondansetron HCl 4 mg 4 mg Q6H PRN IV 07/21/16 23:45 08/20/16 23:44 Dextrose/Lactated Ringer's 1,000 ml @ 50 mls/hr Q20H IV 07/22/16 01:30 08/21/16 01:29 07/24/16 10:07 50 MLS/HR Acetaminophen 100 ml @ 400 mls/hr Q8H PRN IV 07/22/16 00:45 08/21/16 00:44 Enalaprilat/ Dextrose (Vasotec IV/D5 25ml) 25.5 ml @ 100 mls/hr Q6H PRN IV 07/22/16 07:00 08/21/16 06:59 07/24/16 01:05 100 MLS/HR Bisacodyl (Dulcolax Supp) 10 mg ONE PRN NM 07/23/16 09:30 08/22/16 09:29
[2016-07-25 00:50] VITALS: BP 168/69
[2016-07-25] MEDS: D5W AND LACTATED RINGERS 1,000 ML IV SCH (05:32)
[2016-07-25 06:40] LABS: HEMATOCRIT 37.5 % (37-47); MEAN CELL VOLUME 90.4 fL (80-100); MEAN CORPUSCULAR HEMOGLOBIN 31.6 pg (25-34); MEAN CORPUSCULAR HGB CONC 34.9 g/dl (32-36); MEAN PLATELET VOLUME 11.9 fL (7.4-10.4); PLATELET COUNT 160 K/uL (130-400); RED BLOOD COUNT 4.15 M/uL (4.2-5.4); WHITE BLOOD COUNT 5.78 K/uL (4.8-10.8)
[2016-07-25 07:04] VITALS: BP 161/65; PULSE 66; TEMP 36.5; O2SAT 98
[2016-07-25 07:12] LABS: BUN/CREATININE RATIO 10.9 (10-20); CALCIUM 8.6 mg/dl (8.5-10.1); CREATININE 0.48 mg/dl (0.60-1.20); POTASSIUM 3.1 mmol/L (3.5-5.1)
[2016-07-25] MEDS ORDERED: POTASSIUM CHLORIDE 20 MEQ TABCR PO ONE (09:00)
[2016-07-25] MEDS ORDERED: BISACODYL 5 MG TABEC PO PRN (09:45)
--- NOTE | 2016-07-25 10:13 | SURGERY PROGRESS NOTE ---
DATE: 07/25/2016 Britney is sitting at the side of bed in a chair and just her breakfast without any problems. She denies any abdominal pain. She is quite alert, coherent. Last vitals showed a temperature of 36.5, pulse 66, respirations 18, blood pressure 161/65, O2 sats 98 on room air. I\T\O, she had a large bowel movement 2 days ago, none yesterday. Her abdomen is benign. Britney did state that she has a really hard time moving her bowels. In fact, she had a bowel movement at home prior to coming into the hospital that basically was so hard and large that it plugged up the toilet. She was wondering if she could have something to soften up her bowel movements. She says that that liquid stuff that you put in water to help you out is not worth a (shit). We will try to give her a Dulcolax suppository and recommend a low fiber diet. From my point of view, the patient can be discharged at any time at the discretion of the primary service. There is no need to follow up with surgery.
[2016-07-25 15:31] VITALS: BP 146/71; PULSE 69; TEMP 37.1; O2SAT 99
--- NOTE | 2016-07-25 18:19 | Progress Note ---
Medicine Progress Note Date & Time of Visit: Jul 25, 2016 at 18:17. Subjective Patient seen and examined. Had a large, loose BM this morning. Tolerating food. Objective Last 8 Hrs Date Time Temp Pulse Resp B/P Pulse Ox O2 Delivery O2 Flow Rate FiO2 07/25/16 15:31 37.1 69 18 146/71 99 Room Air Physical Exam: General-awake; alert; NAD Eyes-EOMI; no scleral icterus Neck-no stridor; trachea midline Lungs-CTA bilaterally; no wheezes/crackles Heart-RRR; no m/r/g Abdomen-soft; NTND; nBS Extremities-no c/c/e; no deformity Neuro-no gross focal deficits Laboratory Results: Last 24 Hours Test 07/25/16 06:20 White Blood Count 5.78 K/uL Red Blood Count 4.15 M/uL Hemoglobin 13.1 g/dL Hematocrit 37.5 % Mean Corpuscular Volume 90.4 fL Mean Corpuscular Hemoglobin 31.6 pg Mean Corpuscular Hemoglobin Concent 34.9 g/dl RDW Standard Deviation 45.5 fL RDW Coefficient of Variation 13.8 % Platelet Count 160 K/uL Mean Platelet Volume 11.9 fL Sodium Level 143 mmol/L Potassium Level 3.1 mmol/L Chloride Level 106 mmol/L Carbon Dioxide Level 29 mmol/L Anion Gap 8.0 mmol/L Blood Urea Nitrogen 5 mg/dl Creatinine 0.48 mg/dl Est Creatinine Clear Calc Drug Dose 57.7 ml/min Estimated GFR () 102.2 Estimated GFR (Non- 88.2 BUN/Creatinine Ratio 10.9 Random Glucose 95 mg/dl Calcium Level 8.6 mg/dl Assessment & Plan RECURRENT SMALL BOWEL OBSTRUCTION Probably due to underlying adhesions. NGT inserted in ED. Removed 07/24/16. General Surgery consulted. Resolved with conservative measures: bowel rest, IV fluids, analgesics PRN, anti -emetics PRN. HISTORY LV DIASTOLIC DYSFUNCTION No signs of CHF. Follow. EPISODIC ELEVATED BP's Enalapril PRN. VTE PROPHYLAXIS No anticoagulation at this time in case surgical intervention necessary. SCD's. Ambulate. RESUSCITATION STATUS Full code. DISPOSITION Patient requesting referral to [facility]. PT/OT evaluations. Recommend discharge to home with family now (initially recommending rehab). Family Medicine follow-up with Dr. Elvia Carney. Consultants: General surgery Procedures: CT a/p 1. Findings are consistent with high-grade small bowel obstruction. A transition point is identified in the right mid abdomen and this is likely on the basis of adhesions. Surgical consultation is advised. 2. There is a small volume of interloop fluid. No focally thick walled bowel loops are identified. There is no pneumatosis intestinalis comment intraperitoneal free air, or portal venous gas. 3. There is rectosigmoid fecal impaction. 4. There is fluid present within the distal esophagus. Note that this may place the patient at risk for aspiration. Current Inpatient Medications: Current Inpatient Medications Medications (Trade) Dose Ordered Sig/Wilver Route Start Time Stop Time Status Last Admin Dose Admin Ioversol (Optiray 320) 125 ml UD PRN IV 07/21/16 20:30 07/25/16 20:29 Ondansetron HCl 4 mg 4 mg Q6H PRN IV 07/21/16 23:45 08/20/16 23:44 Acetaminophen 100 ml @ 400 mls/hr Q8H PRN IV 07/22/16 00:45 08/21/16 00:44 Enalaprilat/ Dextrose (Vasotec IV/D5 25ml) 25.5 ml @ 100 mls/hr Q6H PRN IV 07/22/16 07:00 08/21/16 06:59 07/24/16 23:22 100 MLS/HR Bisacodyl (Dulcolax Supp) 10 mg ONE PRN GA 07/23/16 09:30 08/22/16 09:29 Bisacodyl (Dulcolax Tab) 5 mg DAILY PRN PO 07/25/16 09:45 08/24/16 09:44
[2016-07-25 23:46] VITALS: BP 155/69; PULSE 69; TEMP 36.9; O2SAT 96
[2016-07-26 07:35] VITALS: BP 158/64; PULSE 70; TEMP 36.4; O2SAT 95
--- NOTE | 2016-07-26 07:46 | SURGERY PROGRESS NOTE ---
DATE: 07/26/2016 HISTORY OF PRESENT ILLNESS: Britney continues to do well. She denies any abdominal discomfort. She is tolerating a diet. She is actually waiting for placement at this time. PHYSICAL EXAMINATION: Her last vitals showed a temperature of 36.4, pulse 70, respirations 16, blood pressure 158/64, O2 sats 95 on room air. I\T\O, she had 150 of urine overnight. She has moved her bowels. Her abdomen is completely benign. ASSESSMENT AND PLAN: At this point, we will sign off. I have nothing further to add to her care. I did add a Dulcolax tablet every morning to try to keep her bowels moving and I discussed that with the patient also.
[2016-07-26 16:06] VITALS: BP 104/53; PULSE 73; TEMP 36.9; O2SAT 96
--- NOTE | 2016-07-26 21:37 | Progress Note ---
Medicine Progress Note Date & Time of Visit: Jul 26, 2016 at 21:36. Subjective Patient seen and examined. She is well and is without complaints. Objective Last 8 Hrs Date Time Temp Pulse Resp B/P Pulse Ox O2 Delivery O2 Flow Rate FiO2 07/26/16 16:06 36.9 73 16 104/53 96 Room Air 07/26/16 16:00 Room Air Physical Exam: General-awake; alert; NAD Eyes-EOMI; no scleral icterus Neck-no stridor; trachea midline Lungs-CTA bilaterally; no wheezes/crackles Heart-RRR; no m/r/g Abdomen-soft; NTND; nBS Extremities-no c/c/e; no deformity Neuro-no gross focal deficits Assessment & Plan RECURRENT SMALL BOWEL OBSTRUCTION Probably due to underlying adhesions. NGT inserted in ED. Removed 07/24/16. General Surgery consulted. Resolved with conservative measures: bowel rest, IV fluids, analgesics PRN, anti -emetics PRN. HISTORY LV DIASTOLIC DYSFUNCTION No signs of CHF. Follow. EPISODIC ELEVATED BP's Enalapril PRN. VTE PROPHYLAXIS No anticoagulation at this time in case surgical intervention necessary. SCD's. Ambulate. RESUSCITATION STATUS Full code. DISPOSITION Patient requesting referral to [facility]. PT/OT evaluations. radiology services manager to help with dispo. Family Medicine follow-up with Dr. Elvia Carney. Consultants: General surgery Procedures: CT a/p 1. Findings are consistent with high-grade small bowel obstruction. A transition point is identified in the right mid abdomen and this is likely on the basis of adhesions. Surgical consultation is advised. 2. There is a small volume of interloop fluid. No focally thick walled bowel loops are identified. There is no pneumatosis intestinalis comment intraperitoneal free air, or portal venous gas. 3. There is rectosigmoid fecal impaction. 4. There is fluid present within the distal esophagus. Note that this may place the patient at risk for aspiration. Current Inpatient Medications: Current Inpatient Medications Medications (Trade) Dose Ordered Sig/Wilver Route Start Time Stop Time Status Last Admin Dose Admin Ondansetron HCl 4 mg 4 mg Q6H PRN IV 07/21/16 23:45 08/20/16 23:44 Acetaminophen 100 ml @ 400 mls/hr Q8H PRN IV 07/22/16 00:45 08/21/16 00:44 Enalaprilat/ Dextrose (Vasotec IV/D5 25ml) 25.5 ml @ 100 mls/hr Q6H PRN IV 07/22/16 07:00 08/21/16 06:59 07/24/16 23:22 100 MLS/HR Bisacodyl (Dulcolax Supp) 10 mg ONE PRN [place] 07/23/16 09:30 08/22/16 09:29 Bisacodyl (Dulcolax Tab) 5 mg DAILY PRN PO 07/25/16 09:45 08/24/16 09:44
[2016-07-26 23:03] VITALS: BP 136/56; PULSE 66; TEMP 36.3; O2SAT 98
[2016-07-27 00:30] VITALS: O2SAT 98
--- NOTE | 2016-07-27 05:59 | SURGERY PROGRESS NOTE ---
DATE: 07/27/2016 Catheter is resting comfortably. No abdominal discomfort. No nausea. Last vitals showed a temperature of 36.3, pulse 66, respirations 16, blood pressure 136/56. I\T\O positively balanced. She has not had a bowel movement in 2 days. Her abdomen is completely benign. There is no distention, no tenderness. At this point, we are awaiting placement for her. From my point of view, certainly she can be discharged at any time.
[2016-07-27 07:23] VITALS: BP 138/75; PULSE 64; TEMP 36.4; O2SAT 96
[2016-07-27] MEDS ORDERED: DOCU-94 PO (11:26)
[2016-07-27] MEDS ORDERED: POLY335019 PO (11:26)
[2016-07-27 13:50] VITALS: BP 138/75; PULSE 64; TEMP 36.4; O2SAT 96
--- NOTE | 2016-07-27 14:27 | Progress Note ---
Internal Med Progress Note Date of Service: Jul 27, 2016. Provider Documentation: SUBJECTIVE: Patient is seen and examined at bedside. Feels well. Denies any nausea, vomiting , abd pain. Did no thave BM today. Also denies any chest pain, SOB, fever, chills. OBJECTIVE: Vital Signs-as noted below Physical Exam: General Appearance:Thin, fragile, no apparent distress Head: normocephalic, Atraumatic Eyes: normal inspection, EOMI, PERRL Neck: supple, no JVD, Trachea midline Respiratory/Chest: Normal breath sounds, CTA Cardiovascular: S1, S2, No murmur Abdomen/GI:Soft, Non tender, Bowel sounds present Extremities/Musculoskelatal:normal inspection, no pedal edema Neurologic/Psych:AAOX3, grossly no focal neurological deficits Skin: normal color, warm Lab data as noted below. ASSESSMENT & PLAN: RECURRENT SMALL BOWEL OBSTRUCTION Probably due to underlying adhesions. NGT inserted in ED. Removed 07/24/16. General Surgery on board- cleared for discharge Resolved with conservative measures: bowel rest, IV fluids, analgesics PRN, anti -emetics PRN. HISTORY LV DIASTOLIC DYSFUNCTION No signs of CHF. Continue to monitor EPISODIC ELEVATED BP's Enalapril PRN. Currently well controlled HYPOKALEMIA: Replaced. VTE PROPHYLAXIS SCD's. Ambulate. RESUSCITATION STATUS Full code. DISPOSITION Patient accepted at [facility]. Plan to DC today Family Medicine follow-up with Dr. Elvia Carney: Aug 02 at 10:50AM Consultants: General surgery Procedures: CT a/p 1. Findings are consistent with high-grade small bowel obstruction. A transition point is identified in the right mid abdomen and this is likely on the basis of adhesions. Surgical consultation is advised. 2. There is a small volume of interloop fluid. No focally thick walled bowel loops are identified. There is no pneumatosis intestinalis comment intraperitoneal free air, or portal venous gas. 3. There is rectosigmoid fecal impaction. 4. There is fluid present within the distal esophagus. Note that this may place the patient at risk for aspiration. Vital Signs: Date Time Temp Pulse Resp B/P Pulse Ox O2 Delivery O2 Flow Rate FiO2 07/27/16 13:50 36.4 64 16 96 Room Air 07/27/16 07:23 36.4 64 16 138/75 96 Room Air 07/27/16 07:20 Room Air 07/27/16 00:30 98 Room Air 07/26/16 23:03 36.3 66 16 136/56 98 Room Air 07/26/16 16:06 36.9 73 16 104/53 96 Room Air 07/26/16 16:00 Room Air
--- NOTE | 2016-07-27 14:32 | Discharge Instructions ---
Discharge Instructions Admission Reason for Admission: Small Bowel Obstruction Discharge Discharge Diagnosis / Problem: Small Bowel Obstruction Discharge Goals Goal(s): Decrease discomfort, Improve function Activity Recommendations Activity Limitations: resume your previous activity . Instructions / Follow-Up Instructions / Follow-Up Follow up with on Aug 02 at 10:50AM, Seek immediate medical attention if your symptoms reoccur or worsen Current Hospital Diet Patient's current hospital diet: Low Fiber Diet Discharge Diet Recommended Diet: Low Fiber Diet Pending Studies Studies pending at discharge: no Medical Emergencies . Who to Call and When: Medical Emergencies: If at any time you feel your situation is an emergency, please call 911 immediately. . Non-Emergent Contact Non-Emergency issues call your: Primary Care Provider Call Non-Emergent contact if: you have a fever, your pain is unusual for you, you have any medication questions . . "Provider Documentation" section prepared by Leroy Price. VTE Core Measure Inpt VTE Proph given/why not?: SCD's
[2016-07-27] MEDS ORDERED: POTASSIUM CHLORIDE 20 MEQ TABCR PO ONE (14:45)
--- NOTE | 2016-07-27 19:10 | Discharge Summary ---
Discharge Summary Admission Date: Jul 21, 2016 at 23:35 Discharge Date: Jul 27, 2016 Discharge Disposition: long term facility Principal Diagnosis: Small Bowel Obstruction Procedures: CT a/p 1. Findings are consistent with high-grade small bowel obstruction. A transition point is identified in the right mid abdomen and this is likely on the basis of adhesions. Surgical consultation is advised. 2. There is a small volume of interloop fluid. No focally thick walled bowel loops are identified. There is no pneumatosis intestinalis comment intraperitoneal free air, or portal venous gas. 3. There is rectosigmoid fecal impaction. 4. There is fluid present within the distal esophagus. Note that this may place the patient at risk for aspiration. Abd X ray: 1. An enteric tube has been placed. The tip projects over the mid stomach. 2. Findings are consistent with persistent small bowel obstruction. The degree of gaseous distention has modestly improved from yesterday. 3. Rectosigmoid fecal impaction is again noted. Consultations: General surgery Pending Studies/Follow-Up: Follow up with on Aug 02 at 10:50AM, Medication Reconciliation New Medications: Docusate Sodium (Colace) 100 Mg Cap 1 CAP PO BID for 30 Days, #60 CAP Polyethylene Glycol 3350 (Miralax) 1 Pow Pow 17 GM PO DAILY PRN for Constipation for 30 Days, #510 GM Continued Medications: Aspirin (Aspirin) 325 Mg Tab 325 MG PO QAM, TAB Atorvastatin (Atorvastatin Calcium) 20 Mg Tab 20 MG PO DAILY, #30 Fish Oil ([place]-3) 1 Ea Cap 1 CAP PO DAILY, CAP Admission Information HPI (per Admitting provider): 85 YO female followed by Dr. Elvia Carney. Admitted for small bowel obstruction July 2015. SBO attributed to adhesions from prior abdominal surgery. Bowel obstruction resolved with conservative management. Patient presented to ED [facility] with abdominal distention, nausea, vomiting. She is uncertain about the exact onset of symptoms- either this morning or perhaps yesterday. No hematemesis. Last bowel movement 1-2 days ago; no melena or hematochezia. She did not try any medications at home for relief of her symptoms. Abdominal distention and nausea have been constant during the day. . Physical Exam (per Admitting): General Appearance: + moderate distress, + thin Head: normocephalic, atraumatic Eyes: normal inspection, PERRL, EOMI, sclerae normal, + pertinent finding ( conjunctivae pink) ENT: normal ENT inspection, + pertinent finding (hard of hearing) Neck: supple, no adenopathy, thyroid normal, no JVD, trachea midline Respiratory/Chest: lungs clear, no respiratory distress, no accessory muscle use Cardiovascular: regular rate, rhythm, no edema, no gallop, no JVD Abdomen/GI: + pertinent finding (quiet bowel sounds, moderately distended, soft, diffuse mild tenderness without rebound or guarding) Extremities/Musculoskelatal: normal inspection, no calf tenderness, normal capillary refill, no pedal edema 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 Elvia Carney with history of small bowel obstruction secondary to adhesions from prior abdominal surgery presented with abdominal distention, nausea, vomiting. RECURRENT SMALL BOWEL OBSTRUCTION Probably due to underlying adhesions. NGT inserted in ED. Removed 07/24/16. General Surgery on board- cleared for discharge Resolved with conservative measures: bowel rest, IV fluids, analgesics PRN, anti -emetics PRN. HISTORY LV DIASTOLIC DYSFUNCTION No signs of CHF. Continue to monitor EPISODIC ELEVATED BP's Enalapril PRN. Currently well controlled HYPOKALEMIA: Replaced. VTE PROPHYLAXIS SCD's. Ambulate. RESUSCITATION STATUS Full code. DISPOSITION Patient accepted at [facility]. Plan to DC today Family Medicine follow-up with Dr. Elvia Carney: Aug 02 at 10:50AM Consultants: General surgery Total time spent on discharge = This includes examination of the patient, discharge planning, medication reconciliation, and communication with other providers. Discharge Instructions Discharge Instructions Admission Reason for Admission: Small Bowel Obstruction Discharge Discharge Diagnosis / Problem: Small Bowel Obstruction Discharge Goals Goal(s): Decrease discomfort, Improve function Activity Recommendations Activity Limitations: resume your previous activity . Instructions / Follow-Up Instructions / Follow-Up Follow up with on Aug 02 at 10:50AM, Seek immediate medical attention if your symptoms reoccur or worsen Current Hospital Diet Patient's current hospital diet: Low Fiber Diet Discharge Diet Recommended Diet: Low Fiber Diet Pending Studies Studies pending at discharge: no Medical Emergencies . Who to Call and When: Medical Emergencies: If at any time you feel your situation is an emergency, please call 911 immediately. . Non-Emergent Contact Non-Emergency issues call your: Primary Care Provider Call Non-Emergent contact if: you have a fever, your pain is unusual for you, you have any medication questions . . "Provider Documentation" section prepared by Leroy Price. VTE Core Measure Inpt VTE Proph given/why not?: SCD's
== END 2016-07-27 15:14 | DRG 390 ==
LOC: ENRESERVTM → ENRESERVDT → EDBD 18:55 → C.EDB 18:56 → C.MSN 23:35
PROVIDERS: ADMIT Hospitalist; ATTEND Internal Medicine
DX: K56.5 Intestinal adhesions [bands] with obstruction (postinfection) (principal); E78.5 Hyperlipidemia, unspecified; K56.41 Fecal impaction; E87.6 Hypokalemia; Z79.82 Long term (current) use of aspirin

== ENCOUNTER 2016-08-15 23:03 | Inpatient (IN) | payer OTHER ==
[~2016-08-15] VITALS: Ht 147.3 cm; Wt 51.3 kg
[~2016-08-15 23:03] MED LIST changes: +ASPI325T4 PO; -ASPI81TA28 PO; +DOCU-94 PO; -MULT-513 PO; +POLY335019 PO
[2016-08-15] MEDS ORDERED: SODIUM CHLORIDE 0.9% 1000ML 1,000 ML IV STA (23:36)
--- NOTE | 2016-08-15 23:41 | EMERGENCY ROOM VISIT NOTE ---
History Report prepared by Charly: David Mckeon Under the Supervision of: Dr. Demetra Will M.D. First contact with patient: 23:25 Chief Complaint: ARM PAIN Stated Complaint: ARM PAIN History of Present Illness The patient is an 85 year old female who presents to the Emergency Room with complaints of constant pain in her left shoulder following a fall that occurred one day prior to arrival. The patient states that she cannot remember what caused her to fall, but does remember having difficulty getting herself off of the floor following the episode. Her neighbor called for EMS. The patient does not think she hit her head during the fall, and has experienced any vomiting episodes. The pain in her left shoulder is worsened with movement. 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 A total of 10 systems reviewed and were otherwise negative. Past Medical & Surgical Medical Problems: (1) Dyslipidemia (2) History of small bowel obstruction (3) Humerus fracture (4) Left ventricular diastolic dysfunction (5) Shoulder pain, left Surgical Problems: (1) H/O colonoscopy (2) S/P cataract surgery (3) S/P cholecystectomy (4) S/P dilation and curettage Family History Arthritis MOTHER Social History Smoking Status: Never Smoker Alcohol Use: none Drug Use: none Marital Status: Housing Status: lives alone Occupation Status: retired Current/Historical Medications Scheduled Aspirin (Aspirin), 325 MG PO QAM Atorvastatin (Atorvastatin Calcium), 20 MG PO DAILY Docusate Sodium (Colace), 1 CAP PO BID Fish Oil ([place]-3), 1 CAP PO DAILY Scheduled PRN Polyethylene Glycol 3350 (Miralax), 17 GM PO DAILY PRN for Constipation Allergies Coded Allergies: No Known Allergies (Unverified , 08/16/16) Physical Exam Vital Signs Date Time Temp Pulse Resp B/P Pulse Ox O2 Delivery O2 Flow Rate FiO2 08/16/16 02:31 72 16 164/67 99 Room Air 08/16/16 00:54 68 08/16/16 00:47 70 16 169/64 99 08/15/16 23:10 36.9 70 16 178/73 100 Room Air Physical Exam Vital signs reviewed. General: Disheveled appearing female, in no significant distress. HEENT: No scleral icterus, PERRLA, neck supple. Atraumatic. Neck: Non-tender to palpation over cervical spine. Cardiovascular: Regular rate and rhythm, no extra sounds. Pulmonary: Clear to auscultation bilaterally, normal work of breathing. Abdomen: Soft, nontender, nondistended, positive bowel sounds. Musculoskeletal: Atraumatic, no peripheral edema. Tenderness along the proximal humerus. No significant deformity. Neurologic: Patient awake alert and answering questions for the most part appropriately. She is aware of current events, but states she fell yesterday. According to family it was 1 day ago. She does follow commands. Skin: Warm, dry, no rash Medical Decision & Procedures ER Provider Diagnostic Interpretation: X-ray results as stated below per my interpretation and radiologist interpretation. Other radiology results as stated below per my review and radiologist interpretation: CT HEAD: Comparison 01/20/12 No ICH, mass effect or skull fracture. Atrophy and chronic-appearing ischemic changes. CT C SPINE: Patient rotated. No acute fracture. Suspected tyroid nodules. Scarring and nodularity lung apices. Radiologist: Jovanny Joyner M.D. Laboratory Results 08/16/16 00:05 Test 08/16/16 00:05 08/16/16 00:14 08/16/16 01:35 Prothrombin Time 10.5 SECONDS (9.0-12.0) Prothromb Time International Ratio 1.0 (0.9-1.1) Anion Gap 9.0 mmol/L (3-11) Est Creatinine Clear Calc Drug Dose 43.9 ml/min BUN/Creatinine Ratio 14.1 (10-20) Calcium Level 9.0 mg/dl (8.5-10.1) Magnesium Level 2.4 mg/dl (1.8-2.4) Total Bilirubin 0.5 mg/dl (0.2-1) Direct Bilirubin 0.2 mg/dl (0-0.2) Aspartate Amino Transf (AST/SGOT) 32 U/L (15-37) Alanine Aminotransferase (ALT/SGPT) 57 U/L (12-78) Alkaline Phosphatase 234 U/L (45-117) Total Creatine Kinase 182 U/L (26-192) Creatine Kinase MB 2.2 ng/ml (0.5-3.6) Creatine Kinase MB Ratio 1.2 (0-3.0) Total Protein 7.2 gm/dl (6.4-8.2) Albumin 3.5 gm/dl (3.4-5.0) Thyroid Stimulating Hormone (TSH) 4.820 uIu/ml (0.300-4.500) Free Thyroxine 1.06 ng/dl (0.80-1.60) Bedside Troponin I 0.000 ng/ml (0-0.045) Urine Color YELLOW Urine Appearance CLEAR (CLEAR) Urine pH 7.5 (4.5-7.5) Urine Specific [place] 1.007 (1.000-1.030) Urine Protein NEG (NEG) Urine Glucose (UA) NEG (NEG) Urine Ketones NEG (NEG) Urine Occult Blood NEG (NEG) Urine Nitrite NEG (NEG) Urine Bilirubin NEG (NEG) Urine Urobilinogen NEG (NEG) Urine Leukocyte Esterase NEG (NEG) Laboratory results per my review. Medications Administered Medications (Trade) Dose Ordered Sig/Wilver Route Start Time Stop Time Status Last Admin Dose Admin Sodium Chloride (Nss 1000ml) 1,000 ml @ 125 mls/hr Q8H STAT IV 08/15/16 23:36 08/16/16 03:38 DC 08/16/16 00:45 125 MLS/HR ECG Indication: weakness Rate (beats per minute): 66 Rhythm: normal sinus Findings: RBBB (incomplete), no ectopy, other (Replorization abnormality. Poor quality baseline) ED Course 2330: Past medical records reviewed. The patient was evaluated in room C1. A complete history and physical examination was performed. 2336: Ordered Sodium Chloride 1000 mL @ 125 mL/hr IV. 0133: I reevaluated the patient at this time, we are waiting on the results of her urinalysis. 0218: I discussed the case with Dr. Manzano [facility] Hospitalist at this time , he will evaluate the patient for further treatment. Medical Decision Differential diagnosis: Etiologies such as metabolic, infection, hypo/hyperglycemia, electrolyte abnormalities, cardiac sources, intracerebral event, toxicologic, neurologic, shoulder dislocation, humeral head, fracture, contusion. This pt was evaluated and appeared to be in no distress. IV access was obtained and lab work was drawn. Pt was placed on the court monitor. Pt was hydrated with NSS XR of the left shoulder is negative to my interpretation. Pt is tender to exam. She may have sustained a subtle fx the is not seen on XR at this time. Given her weakness and fall, arm pain and likely need for placement, pt will be evaluated for further management. Consults Time Called: [phone] Consulting Physician: Dr. Jose Juan Davis Hospitalist Returned Call: [phone] I discussed the case with Dr. Jose Juan Vences at this time, he will evaluate the patient for further treatment. Impression Primary Impression: Weakness Additional Impressions: Fall Left arm pain Scribe Attestation The scribe's documentation has been prepared under my direction and personally reviewed by me in its entirety. I confirm that the note above accurately reflects all work, treatment, procedures, and medical decision making performed by me. Departure Information Dispostion Being Evaluated By Hospitalist Referrals No Doctor, Assigned (PCP) Patient Instructions My [facility] Problem Qualifiers Additional Impressions: Fall Encounter type: initial encounter Qualified Codes: W19.XXXA - Unspecified fall, initial encounter
[2016-08-16 00:22] LABS: BASO % 0.3 %; BASO ABS # 0.02 K/uL (0-0.2); COMPLETE YES; EOS % 0.5 %; IG% 0.3 %; LYMPH % 19.8 %; MEAN CELL VOLUME 94.3 fL (80-100); MEAN CORPUSCULAR HEMOGLOBIN 31.8 pg (25-34); MEAN CORPUSCULAR HGB CONC 33.8 g/dl (32-36); MEAN PLATELET VOLUME 11.5 fL (7.4-10.4); MONO % 11.9 %; NEUT % 67.2 %; PLATELET COUNT 220 K/uL (130-400); RED BLOOD COUNT 4.24 M/uL (4.2-5.4); WHITE BLOOD COUNT 7.58 K/uL (4.8-10.8)
[2016-08-16 00:57] LABS: CREATININE 0.68 mg/dl (0.60-1.20)
[2016-08-16 00:58] LABS: BUN/CREATININE RATIO 14.1 (10-20); MAGNESIUM 2.4 mg/dl (1.8-2.4); POTASSIUM 3.9 mmol/L (3.5-5.1)
[2016-08-16 01:03] LABS: CKMB/CK RATIO 1.2 (0-3.0)
[2016-08-16 01:49] LABS: URINE APPEARANCE CLEAR (CLEAR); URINE BILIRUBIN NEG (NEG); URINE COLOR YELLOW; URINE NITRITE NEG (NEG); URINE PH 7.5 (4.5-7.5); URINE SPECIFIC GRAVITY 1.007 (1.000-1.030); UROBILINOGEN NEG (NEG); ZZURINE CULT IF INDIC CATH NO
[2016-08-16 01:53] LABS: MANUAL MICROSCOPIC REQUIRED? NO; REVIEW REQ? NO
[2016-08-16 02:52] LABS: THYROID STIMULATING HORMONE 4.82 uIu/ml (0.300-4.500)
[2016-08-16] MEDS ORDERED: HYDROmorphone INJ 0.5 MG/0.5 ML SYR IV PRN (03:15)
[2016-08-16] MEDS ORDERED: ONDANSETRON INJ 2 MG/ML 2 ML VIAL IV PRN (03:15)
[2016-08-16] MEDS ORDERED: TRAMADOL HCL 50 MG TAB PO PRN (03:15)
[2016-08-16] MEDS ORDERED: LACTATED RINGER'S 1000ML 1,000 ML IV ONE (03:15)
[2016-08-16 03:30] VITALS: BP 166/70; PULSE 61; TEMP 36.4; O2SAT 96; Ht 147.3 cm; Wt 51.3 kg
[2016-08-16] MEDS: ACETAMINOPHEN 325 MG TAB PO PRN ×2 (04:03→11:59)
--- NOTE | 2016-08-16 04:41 | HISTORY & PHYSICAL EXAMINATION ---
DATE OF ADMISSION: 08/16/2016 PRIMARY CARE DOCTOR: Dr. Carney Hx obtained from px and records. CHIEF COMPLAINT: Fall. HISTORY OF PRESENT ILLNESS: Medical history is significant for diastolic dysfunction, hyperlipidemia. Recent confinement about 3 weeks ago for small-bowel obstruction. Resolved with conservative management. Px discharged to [facility] for rehab. As per [facility] discharge note, px oted to have some cognitive impairment on mental status exam, but appears to be capable. Patient was discharged back to her home a few days ago. Yesterday, the patient had a fall, slipped and landed on the left side, painful left shoulder. No chest pain. No shortness of breath. no syncope. Patient was brought to the Emergency Room. MEDICAL HISTORY: As above. SURGERIES: She has had cataract surgery, cholecystectomy, D\T\C. HOME MEDICATIONS: Include; atorvastatin and aspirin. FAMILY HISTORY: Arthritis. PERSONAL SOCIAL HISTORY: Nonsmoker. No chronic intake of alcoholic beverages. Retired executive secretary social welfare. Lives alone. REVIEW OF SYSTEMS: As per HPI, all other ROS negative. PHYSICAL EXAMINATION: VITAL SIGNS: Blood pressure was noted to be BP 150/90, pulse rate 72, RR 16, temperature 36.9; sats 98 on room air. GENERAL: Noted to be uncomfortable, anxious, in no respiratory distress. SKIN: Normal color. HEENT: displaced wig, pink palp conjunctivae, dry mucosa. NECK: No JVD. Supple. CHEST: Clear to auscultation. HEART: Regular rate and rhythm. ABDOMEN: Soft. EXTREMITIES: Tenderness in the left shoulder. NEUROLOGIC: No gross focality except for mild hearing impairment. LABORATORIES: Hemoglobin 13, hematocrit 40, white cell count 11.3, platelets 220. Sodium 140, potassium 3.6, chloride 104, CO2 30, BUN 10, creatinine 0.6. Glucose was noted to be 107. trop 0 CT of the head initial read; no acute pathology. L Elbow and shoulder X-rays of the left initial read no acute fxs ASSESSMENT: 1. LUE pain secondary to post-traumatic fall rule out acute bony injury ambulatory dysfunction 2. situational HTN possible chronic hypertension with cardiomegaly on chest x-ray. PLAN: Observation. GMF analgesia. Follow official LUE x-ray results analgesia. consider low-dose ACEI of BP still uncontrolled. PT/OT evaluation. Social Service RE DC planning DVT prophylaxis, Lovenox subQ. Full code. Patient requesting that her niece, Miss Elina Soriano be updated of plan of care. (contact number : [phone]) LEISA
[2016-08-16 05:38] VITALS: BP 136/60; PULSE 61
[2016-08-16] MEDS ORDERED: IV FLUIDS COMPLETED PRN (06:00)
[2016-08-16] MEDS ORDERED: POLYETHYLENE (MIRALAX) 17 GM PACK PO PRN (06:00)
--- NOTE | 2016-08-16 06:44 | DIAGNOSTIC IMAGING REPORT ---
CHEST ONE VIEW PORTABLE CLINICAL HISTORY: Trauma. Change in mental status. COMPARISON STUDY: [id number] FINDINGS: The heart is at the upper limits of normal in size. There is no overt failure. There are no pleural effusions. There is no pneumothorax. There is no focal pulmonary consolidation.[ IMPRESSION: No active disease in the chest. Electronically signed by: Ricardo Del Rio M.D. 08/16/2016 6:42 AM Dictated Date/Time: 08/16/2016 6:41 AM
--- NOTE | 2016-08-16 06:45 | DIAGNOSTIC IMAGING REPORT ---
LEFT SHOULDER MIN 2 VIEWS ROUTINE CLINICAL HISTORY: Left shoulder pain status post trauma COMPARISON: None. DISCUSSION: No acute fractures or dislocations the proximal humerus are visualized. The bones are osteopenic. There are subtle age-indeterminate left-sided rib fractures. IMPRESSION: 1. No acute fractures or dislocations of the proximal humerus are visualized 2. Subtle age-indeterminate left-sided rib deformities Electronically signed by: Ricardo Del Rio M.D. 08/16/2016 6:43 AM Dictated Date/Time: 08/16/2016 6:42 AM
--- NOTE | 2016-08-16 06:50 | DIAGNOSTIC IMAGING REPORT ---
CT OF THE CERVICAL SPINE CLINICAL HISTORY: Neck pain status post trauma COMPARISON STUDY: No previous studies for comparison. CT DOSE: TECHNIQUE: CT scan of the cervical spine was performed from the skull base to the thoracic inlet. Images are reviewed in the axial, sagittal, and coronal planes. IV contrast was not administered for this examination. FINDINGS: The visualized portions of the lung apices reveal no evidence of pneumothorax. The prevertebral soft tissues are normal. No fractures or subluxations are visualized. There are multilevel degenerative changes IMPRESSION: No evidence of acute fracture or traumatic subluxation. Electronically signed by: Ricardo Del Rio M.D. 08/16/2016 6:49 AM Dictated Date/Time: 08/16/2016 6:47 AM
[2016-08-16 06:55] LABS: PROTHROMBIN TIME (PATIENT) 10.5 SECONDS (9.0-12.0)
--- NOTE | 2016-08-16 06:55 | DIAGNOSTIC IMAGING REPORT ---
CT OF THE HEAD WITHOUT CONTRAST CLINICAL HISTORY: Altered mental status. Fall. COMPARISON STUDY: Head CT December 15, 2013. CT DOSE: 903.54 mGy.cm TECHNIQUE: Helical axial images of the head were obtained without IV contrast. Automated exposure control was utilized for the study. FINDINGS: No acute intracranial hemorrhage, midline shift or mass effect is present. Ventricular dilatation is unchanged since exam of December 15, 2013 and likely due to atrophy. White matter hypodensity suggests small vessel disease. The basilar cisterns are patent. There are no extra-axial collections. There are no findings to suggest acute dural sinus thrombosis or acute territorial infarct. There is no calvarial fracture. IMPRESSION: 1. No acute intracranial findings. 2. No calvarial fracture. Electronically signed by: Ilia Pierson M.D. 08/16/2016 6:54 AM Dictated Date/Time: 08/16/2016 6:52 AM
[2016-08-16 06:56] VITALS: BP 130/68; PULSE 65; TEMP 36.8; O2SAT 99
--- NOTE | 2016-08-16 06:57 | DIAGNOSTIC IMAGING REPORT ---
LEFT ELBOW MIN 3 VIEWS ROUTINE CLINICAL HISTORY: Left elbow pain status post trauma COMPARISON: None. DISCUSSION: The study is slightly limited from a positioning standpoint. The bones are osteopenic. The fat pads are not displaced. No acute fractures are visualized. A corticated bony density adjacent to the lateral epicondyles of distal humerus is felt to be old. IMPRESSION: No acute fractures are visualized on the provided images. Electronically signed by: Ricardo Del Rio M.D. 08/16/2016 6:55 AM Dictated Date/Time: 08/16/2016 6:54 AM
[2016-08-16] MEDS: DOCUSATE SODIUM 100 MG CAP PO SCH ×2 (09:26→20:41)
[2016-08-16] MEDS: ATORVASTATIN 20 MG TAB PO SCH (09:26)
[2016-08-16] MEDS: ASPIRIN 325 MG ECTAB PO SCH (09:26)
[2016-08-16] MEDS: ENOXAPARIN 30 MG/0.3 ML SYR SQ SCH (09:26)
[2016-08-16 15:51] VITALS: BP 128/63; PULSE 56; TEMP 36.7; O2SAT 100
--- NOTE | 2016-08-16 15:57 | Progress Note ---
Internal Med Progress Note Date of Service: Aug 16, 2016. Provider Documentation: SUBJECTIVE: Patient is seen and examined at bedside. States left shoulder pain is improving. Denies chest pain, SOB, dizziness. OBJECTIVE: Vital Signs-as noted below Physical Exam: General Appearance:Moderately built and nourished, no apparent distress Head: normocephalic, Atraumatic Eyes: normal inspection, EOMI, PERRLA, Anicteric Neck: supple, Trachea midline Respiratory/Chest: Normal breath sounds, CTA, No accessory muscle use Cardiovascular: S1, S2, No murmur Abdomen/GI:Soft, Non tender, Bowel sounds present Extremities/Musculoskelatal:normal inspection, no edema Neurologic/Psych:AAOX3, grossly no focal neurological deficits. + Decreased ROM of Left Upper Extremity Skin: normal color, warm Lab data as noted below. ASSESSMENT & PLAN: LEFT UPPER EXTREMITY PAIN S/P FALL AMBULATORY DYSFUNCTION Imaging studies negative for fracture Pain control PT/OT Needs rehab placement H/O RECURRENT SMALL BOWEL OBSTRUCTION Recent discharge from [facility] after being treated for SBO Resolved with conservative management at the time. H/O LV DIASTOLIC DYSFUNCTION No signs of CHF. Continue to monitor H/O EPISODIC ELEVATED BP's BP well controlled monitor DVT Px: Lovenox SQ CODE STATUS: Full code DISPOSITION: Will discharge when placement available Vital Signs: Date Time Temp Pulse Resp B/P Pulse Ox O2 Delivery O2 Flow Rate FiO2 08/16/16 16:15 Room Air 08/16/16 15:51 36.7 56 18 128/63 100 Room Air 08/16/16 07:15 Room Air 08/16/16 06:56 36.8 65 18 130/68 99 Room Air 08/16/16 05:38 61 136/60 08/16/16 03:30 36.4 61 16 166/70 96 Room Air 08/16/16 03:30 Room Air 08/16/16 03:17 72 16 164/67 99 08/16/16 02:31 72 16 164/67 99 Room Air 08/16/16 00:54 68 08/16/16 00:47 70 16 169/64 99 08/15/16 23:10 36.9 70 16 178/73 100 Room Air Lab Results: Results Past 24 Hours Test 08/16/16 00:05 08/16/16 00:14 08/16/16 01:35 Range/Units White Blood Count 7.58 4.8-10.8 K/uL Red Blood Count 4.24 4.2-5.4 M/uL Hemoglobin 13.5 12.0-16.0 g/dL Hematocrit 40.0 37-47 % Mean Corpuscular Volume 94.3 80-100 fL Mean Corpuscular Hemoglobin 31.8 25-34 pg Mean Corpuscular Hemoglobin Concent 33.8 32-36 g/dl Platelet Count 220 130-400 K/uL Mean Platelet Volume 11.5 7.4-10.4 fL Neutrophils (%) (Auto) 67.2 % Lymphocytes (%) (Auto) 19.8 % Monocytes (%) (Auto) 11.9 % Eosinophils (%) (Auto) 0.5 % Basophils (%) (Auto) 0.3 % Neutrophils # (Auto) 5.10 1.4-6.5 K/uL Lymphocytes # (Auto) 1.50 1.2-3.4 K/uL Monocytes # (Auto) 0.90 0.11-0.59 K/uL Eosinophils # (Auto) 0.04 0-0.5 K/uL Basophils # (Auto) 0.02 0-0.2 K/uL RDW Standard Deviation 49.0 36.4-46.3 fL RDW Coefficient of Variation 14.3 11.5-14.5 % Immature Granulocyte % (Auto) 0.3 % Immature Granulocyte # (Auto) 0.02 0.00-0.02 K/uL Prothrombin Time 10.5 9.0-12.0 SECONDS Prothromb Time International Ratio 1.0 0.9-1.1 Sodium Level 143 136-145 mmol/L Potassium Level 3.9 3.5-5.1 mmol/L Chloride Level 104 98-107 mmol/L Carbon Dioxide Level 30 21-32 mmol/L Anion Gap 9.0 3-11 mmol/L Blood Urea Nitrogen 10 7-18 mg/dl Creatinine 0.68 0.60-1.20 mg/dl Est Creatinine Clear Calc Drug Dose 43.9 ml/min Estimated GFR () 91.2 Estimated GFR (Non- 78.6 BUN/Creatinine Ratio 14.1 10-20 Random Glucose 107 70-99 mg/dl Calcium Level 9.0 8.5-10.1 mg/dl Magnesium Level 2.4 1.8-2.4 mg/dl Total Bilirubin 0.5 0.2-1 mg/dl Direct Bilirubin 0.2 0-0.2 mg/dl Aspartate Amino Transf (AST/SGOT) 32 15-37 U/L Alanine Aminotransferase (ALT/SGPT) 57 12-78 U/L Alkaline Phosphatase 234 45-117 U/L Total Creatine Kinase 182 26-192 U/L Creatine Kinase MB 2.2 0.5-3.6 ng/ml Creatine Kinase MB Ratio 1.2 0-3.0 Total Protein 7.2 6.4-8.2 gm/dl Albumin 3.5 3.4-5.0 gm/dl Thyroid Stimulating Hormone (TSH) 4.820 0.300-4.500 uIu/ml Free Thyroxine 1.06 0.80-1.60 ng/dl Bedside Troponin I 0.000 0-0.045 ng/ml Urine Color YELLOW Urine Appearance CLEAR CLEAR Urine pH 7.5 4.5-7.5 Urine Specific [place] 1.007 1.000-1.030 Urine Protein NEG NEG Urine Glucose (UA) NEG NEG Urine Ketones NEG NEG Urine Occult Blood NEG NEG Urine Nitrite NEG NEG Urine Bilirubin NEG NEG Urine Urobilinogen NEG NEG Urine Leukocyte Esterase NEG NEG
[2016-08-16 23:23] VITALS: BP 138/72; PULSE 66; TEMP 36.4; O2SAT 100
[2016-08-17 07:50] VITALS: BP 114/64; PULSE 69; TEMP 36.8; O2SAT 98
[2016-08-17 07:51] LABS: BASO % 0.1 %; BASO ABS # 0.01 K/uL (0-0.2); COMPLETE YES; EOS % 0.7 %; HEMATOCRIT 37.5 % (37-47); IG% 0.3 %; LYMPH ABS # 0.91 K/uL (1.2-3.4); MEAN CORPUSCULAR HEMOGLOBIN 32.3 pg (25-34); MEAN CORPUSCULAR HGB CONC 34.4 g/dl (32-36); MEAN PLATELET VOLUME 11.9 fL (7.4-10.4); MONO % 9.7 %; NEUT % 76.2 %; PLATELET COUNT 169 K/uL (130-400); RED BLOOD COUNT 3.99 M/uL (4.2-5.4); WHITE BLOOD COUNT 6.99 K/uL (4.8-10.8)
[2016-08-17] MEDS: DOCUSATE SODIUM 100 MG CAP PO SCH ×2 (08:41→20:49)
[2016-08-17] MEDS: ASPIRIN 325 MG ECTAB PO SCH (08:41)
[2016-08-17] MEDS: ATORVASTATIN 20 MG TAB PO SCH (08:41)
[2016-08-17] MEDS: ENOXAPARIN 30 MG/0.3 ML SYR SQ SCH (08:42)
--- NOTE | 2016-08-17 12:56 | Progress Note ---
Internal Med Progress Note Date of Service: Aug 17, 2016. Provider Documentation: SUBJECTIVE: Patient is unable to abduct left shoulder - pain with movement but not at rest, no swelling noted C/o of not getting food on time. No fever, chills, chest pain, nausea, vomiting, sob Mental status: Awake, oriented to place, person OBJECTIVE: Vital Signs-as noted below Exam: Physical Exam: General Appearance:Moderately built and nourished, no apparent distress; AAOX2 Head: normocephalic, Atraumatic Eyes: normal inspection, EOMI, PERRLA, Anicteric Neck: supple, Trachea midline Respiratory/Chest: Normal breath sounds, CTA, No accessory muscle use Cardiovascular: S1, S2, No murmur Abdomen/GI:Soft, Non tender, Bowel sounds present Extremities/Musculoskelatal: Left shoulder- ROM + unable to abduct 45 degrees due to pain Neurologic/Psych:AAOX3, grossly no focal neurological deficits. Lab data as noted below. ASSESSMENT & PLAN: ASSESSMENT & PLAN: LEFT UPPER EXTREMITY PAIN S/P FALL -Imaging studies - x ray is negative for fracture -Will order MRI to rule out rotator cuff injuries due to inability to abduct left shoulder -Pain control -PT/OT -Needs rehab placement H/O RECURRENT SMALL BOWEL OBSTRUCTION Recent discharge from [facility] after being treated for SBO -Resolved with conservative management at the time. -Tolerating PO well H/O LV DIASTOLIC DYSFUNCTION -No signs of CHF. -Continue to monitor H/O EPISODIC ELEVATED BP's -BP well controlled -monitor DVT Px: Lovenox SQ CODE STATUS: Full code DISPOSITION: F/up MRI shoulder Awaiting placement Vital Signs: Date Time Temp Pulse Resp B/P Pulse Ox O2 Delivery O2 Flow Rate FiO2 08/17/16 07:50 36.8 69 16 114/64 98 Room Air 08/17/16 07:15 Room Air 08/16/16 23:35 Room Air 08/16/16 23:23 36.4 66 14 138/72 100 Room Air 08/16/16 16:15 Room Air 08/16/16 15:51 36.7 56 18 128/63 100 Room Air Lab Results: Results Past 24 Hours Test 08/17/16 07:30 Range/Units White Blood Count 6.99 4.8-10.8 K/uL Red Blood Count 3.99 4.2-5.4 M/uL Hemoglobin 12.9 12.0-16.0 g/dL Hematocrit 37.5 37-47 % Mean Corpuscular Volume 94.0 80-100 fL Mean Corpuscular Hemoglobin 32.3 25-34 pg Mean Corpuscular Hemoglobin Concent 34.4 32-36 g/dl Platelet Count 169 130-400 K/uL Mean Platelet Volume 11.9 7.4-10.4 fL Neutrophils (%) (Auto) 76.2 % Lymphocytes (%) (Auto) 13.0 % Monocytes (%) (Auto) 9.7 % Eosinophils (%) (Auto) 0.7 % Basophils (%) (Auto) 0.1 % Neutrophils # (Auto) 5.32 1.4-6.5 K/uL Lymphocytes # (Auto) 0.91 1.2-3.4 K/uL Monocytes # (Auto) 0.68 0.11-0.59 K/uL Eosinophils # (Auto) 0.05 0-0.5 K/uL Basophils # (Auto) 0.01 0-0.2 K/uL RDW Standard Deviation 49.2 36.4-46.3 fL RDW Coefficient of Variation 14.3 11.5-14.5 % Immature Granulocyte % (Auto) 0.3 % Immature Granulocyte # (Auto) 0.02 0.00-0.02 K/uL
[2016-08-17 15:14] VITALS: BP 92/50; PULSE 74; TEMP 36.5; O2SAT 98
[2016-08-17 21:34] VITALS: BP 133/69
[2016-08-17 23:43] VITALS: BP 153/62; PULSE 69; TEMP 36.5; O2SAT 99
[2016-08-18 00:33] VITALS: BP 137/70; PULSE 66
--- NOTE | 2016-08-18 06:36 | DIAGNOSTIC IMAGING REPORT ---
MRI OF THE LEFT SHOULDER WITHOUT CONTRAST CLINICAL HISTORY: Left shoulder pain following fall. Evaluate for rotator cuff injury. COMPARISON STUDY: Left shoulder radiographs August 15, 2016. TECHNIQUE: Utilizing a 1.5 Yodit magnet, multiplanar, multiecho imaging of the left shoulder was performed without intravenous or intra-articular contrast. FINDINGS: Linear hypointense signal on the T1 weighted sequence with associated moderate marrow edema within the inferior left humeral head extending into the humeral neck is consistent with a nondisplaced fracture. There is also a 1.9 x 0.6 cm tubular T2 hyperintense focus with a left humeral neck which is age-indeterminate. There is a moderate-sized joint effusion of the glenohumeral joint. There is moderate AC joint arthrosis. There is mild to moderate glenohumeral joint arthrosis. Note is made of a partial thickness articular surface tear of distal supraspinatus. There is no full-thickness cuff tear. There is muscular atrophy of the the glenoid labrum is slightly truncated. There is a possible tear of the proximal long head of biceps tendon without full-thickness tear. IMPRESSION: 1. Acute nondisplaced fracture of the inferior left humeral head extending to the humeral neck. 2. Partial-thickness articular surface tear of distal supraspinatus. 3. Truncated glenoid labrum. 4. Moderate arthrosis of the left acromioclavicular joint and mild arthrosis of the glenohumeral joint. 5. Moderate-sized joint effusion. Electronically signed by: Ilia Pierson M.D. 08/18/2016 6:35 AM Dictated Date/Time: 08/18/2016 6:29 AM
[2016-08-18 07:30] VITALS: BP 129/52; PULSE 62; TEMP 36.9; O2SAT 97
[2016-08-18] MEDS: DOCUSATE SODIUM 100 MG CAP PO SCH ×2 (08:50→20:43)
[2016-08-18] MEDS: ASPIRIN 325 MG ECTAB PO SCH (08:50)
[2016-08-18] MEDS: ATORVASTATIN 20 MG TAB PO SCH (08:50)
[2016-08-18] MEDS: ENOXAPARIN 30 MG/0.3 ML SYR SQ SCH (08:51)
--- NOTE | 2016-08-18 13:16 | Progress Note ---
Internal Med Progress Note Date of Service: Aug 18, 2016. Provider Documentation: SUBJECTIVE: Patient is unable to abduct left shoulder - pain with movement but not at rest, no swelling noted C/o of not getting food on time. No fever, chills, chest pain, nausea, vomiting, sob Mental status: Awake, oriented to place, person OBJECTIVE: Vital Signs-as noted below Exam: Physical Exam: General Appearance:Moderately built and nourished, no apparent distress; AAOX2 Head: normocephalic, Atraumatic Eyes: normal inspection, EOMI, PERRLA, Anicteric Neck: supple, Trachea midline Respiratory/Chest: Normal breath sounds, CTA, No accessory muscle use Cardiovascular: S1, S2, No murmur Abdomen/GI:Soft, Non tender, Bowel sounds present Extremities/Musculoskelatal: Left shoulder- ROM + unable to abduct 45 degrees due to pain Neurologic/Psych:AAOX3, grossly no focal neurological deficits. Lab data as noted below. ASSESSMENT & PLAN: ASSESSMENT & PLAN: LEFT HUMERUS FRACTURE (NON DISPLACED) S/P FALL Patient came in for left shoulder pain after fall. Imaging came back negative for fracture. Got admitted for placement. 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 -Ortho consulted -Pain management -Needs rehab placement H/O RECURRENT SMALL BOWEL OBSTRUCTION Recent discharge from [facility] after being treated for SBO -Resolved with conservative management at the time. -Tolerating PO well H/O LV DIASTOLIC DYSFUNCTION -No signs of CHF. -Continue to monitor H/O EPISODIC ELEVATED BP's -BP well controlled -monitor DVT Px: Lovenox SQ CODE STATUS: Full code DISPOSITION: Medical mx in progress Observation status changed to inpatient as diagnosed with left humerus fracture Vital Signs: Date Time Temp Pulse Resp B/P Pulse Ox O2 Delivery O2 Flow Rate FiO2 08/18/16 07:30 36.9 62 18 129/52 97 Room Air 08/18/16 07:15 Room Air 08/18/16 00:33 66 137/70 2/22/17 00:30 Room Air 08/17/16 23:43 36.5 69 14 153/62 99 Room Air 08/17/16 21:34 133/69 08/17/16 15:15 Room Air 08/17/16 15:14 36.5 74 16 92/50 98 Room Air
[2016-08-18 16:00] VITALS: BP 118/54; PULSE 61; TEMP 36.6; O2SAT 98
[2016-08-18 23:45] VITALS: BP 133/58; PULSE 61; TEMP 36.8; O2SAT 97
--- NOTE | 2016-08-18 23:56 | ORTHOPEDIC CONSULTATION ---
DATE OF CONSULTATION: 08/18/2016 CHIEF COMPLAINT: Left shoulder pain. HISTORY OF PRESENT ILLNESS: Britney is a pleasant 85-year-old female who lives in a single floor apartment by herself in [place]. About 3 days ago, she fell directly on her left side. She has been complaining of the left shoulder pain. She was admitted to the hospital because she lives alone under the internal medicine service. Initial x-rays of her shoulder were negative, but MRI did show an occult fracture of the proximal humerus so orthopedics was consulted to evaluate and treat. PAST MEDICAL HISTORY: Significant for cognitive impairment and hyperlipidemia, otherwise she is pretty healthy. HOME MEDICATIONS: Include atorvastatin and aspirin. PAST SURGICAL HISTORY: Include cataract surgery, cholecystectomy, and D\T\C. SOCIAL HISTORY: She lives in a single floor apartment in [place] by herself. REVIEW OF SYSTEMS: She complains of left shoulder pain. All other pertinent review of systems are negative. PHYSICAL EXAMINATION: On physical examination of the left shoulder, she does have tenderness to palpation around the proximal humerus. She is unable to forward elevate much past 10 degrees. Passively I can get her up a little further, but she has a lot of pain. Her radial, median and ulnar nerves were checked and intact. She has no ecchymosis of the shoulder. IMAGING DATA: X-rays of the left shoulder show no evidence of fracture or arthritis. MRI of the left shoulder shows a rotator cuff to be basically intact, but there to be a slight impaction fracture right along the anatomic humeral neck. IMPRESSION: Nondisplaced left proximal humerus fracture. PLAN: Given her age and the fact that this is a nondisplaced impaction fracture, this will do fine with very minimal treatment. We are going to order a sling for her to wear as needed for comfort, but as long as she stays within pain tolerance, this should heal fine. I will see her in my office in 3 weeks to get repeat x-rays and to see how she is doing. Office phone number is [phone].
[2016-08-19 06:27] LABS: HEMATOCRIT 34.5 % (37-47); MEAN CELL VOLUME 93.5 fL (80-100); MEAN CORPUSCULAR HEMOGLOBIN 31.7 pg (25-34); MEAN CORPUSCULAR HGB CONC 33.9 g/dl (32-36); PLATELET COUNT 162 K/uL (130-400); RED BLOOD COUNT 3.69 M/uL (4.2-5.4); WHITE BLOOD COUNT 4.58 K/uL (4.8-10.8)
[2016-08-19 06:56] LABS: CREATININE 0.72 mg/dl (0.60-1.20)
[2016-08-19 07:00] VITALS: BP 132/77; PULSE 58; TEMP 36.5; O2SAT 97
[2016-08-19] MEDS: DOCUSATE SODIUM 100 MG CAP PO SCH ×2 (08:07→20:51)
[2016-08-19] MEDS: ASPIRIN 325 MG ECTAB PO SCH (08:07)
[2016-08-19] MEDS: ATORVASTATIN 20 MG TAB PO SCH (08:07)
[2016-08-19] MEDS: ENOXAPARIN 30 MG/0.3 ML SYR SQ SCH (08:08)
--- NOTE | 2016-08-19 13:03 | Progress Note ---
Internal Med Progress Note Date of Service: Aug 19, 2016. Provider Documentation: SUBJECTIVE: Patient is unable to abduct left shoulder - pain with movement but not at rest, no swelling noted C/o of not getting food on time. No fever, chills, chest pain, nausea, vomiting, sob Mental status: Awake, oriented to place, person OBJECTIVE: Vital Signs-as noted below Exam: Physical Exam: General Appearance:Moderately built and nourished, no apparent distress; AAOX2 Head: normocephalic, Atraumatic Eyes: normal inspection, EOMI, PERRLA, Anicteric Neck: supple, Trachea midline Respiratory/Chest: Normal breath sounds, CTA, No accessory muscle use Cardiovascular: S1, S2, No murmur Abdomen/GI:Soft, Non tender, Bowel sounds present Extremities/Musculoskelatal: Left shoulder- ROM + unable to abduct 45 degrees due to pain Neurologic/Psych:AAOX3, grossly no focal neurological deficits. Lab data as noted below. ASSESSMENT & PLAN: ASSESSMENT & PLAN : LEFT HUMERUS FRACTURE (NON DISPLACED) S/P FALL : Patient came in for left shoulder pain after fall. Imaging came back negative for fracture. Got admitted for placement. 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 -Ortho consulted - Recommends conservative approach as non displaced and advanced age--> Sling and follow up in 3 weeks for repeat X ray -Pain management - well controlled -Needs rehab placement H/O RECURRENT SMALL BOWEL OBSTRUCTION Recent discharge from [facility] after being treated for SBO -Resolved with conservative management at the time. -Tolerating PO well H/O LV DIASTOLIC DYSFUNCTION -No signs of CHF. -Continue to monitor H/O EPISODIC ELEVATED BP's -BP well controlled -monitor DVT Px: Lovenox SQ CODE STATUS: Full code DISPOSITION: Observation status changed to inpatient as diagnosed with left humerus fracture OKAY TO DISCHARGE FROM [facility], AWAITING PLACEMENT- [facility] Discussed with niece by bedside Vital Signs: Date Time Temp Pulse Resp B/P Pulse Ox O2 Delivery O2 Flow Rate FiO2 08/19/16 07:15 Room Air 08/19/16 07:00 36.5 58 16 132/77 97 Room Air 08/18/16 23:45 36.8 61 16 133/58 97 Room Air 08/18/16 23:25 Room Air 08/18/16 16:00 36.6 61 16 118/54 98 Room Air 08/18/16 15:30 Room Air Lab Results: Results Past 24 Hours Test 08/19/16 06:15 Range/Units White Blood Count 4.58 4.8-10.8 K/uL Red Blood Count 3.69 4.2-5.4 M/uL Hemoglobin 11.7 12.0-16.0 g/dL Hematocrit 34.5 37-47 % Mean Corpuscular Volume 93.5 80-100 fL Mean Corpuscular Hemoglobin 31.7 25-34 pg Mean Corpuscular Hemoglobin Concent 33.9 32-36 g/dl RDW Standard Deviation 49.1 36.4-46.3 fL RDW Coefficient of Variation 14.3 11.5-14.5 % Platelet Count 162 130-400 K/uL Mean Platelet Volume 11.0 7.4-10.4 fL Creatinine 0.72 0.60-1.20 mg/dl Est Creatinine Clear Calc Drug Dose 39.1 ml/min Estimated GFR () 87.3 Estimated GFR (Non- 75.3
[2016-08-19 15:00] VITALS: BP 103/63; PULSE 72; TEMP 36.6; O2SAT 96
[2016-08-19 23:33] VITALS: BP 120/53; PULSE 63; TEMP 36.7; O2SAT 95
[2016-08-20 07:22] VITALS: BP 145/70; PULSE 62; TEMP 36.7; O2SAT 99
[2016-08-20 07:28] LABS: BASO % 0.4 %; BASO ABS # 0.02 K/uL (0-0.2); COMPLETE YES; EOS % 3.1 %; HEMATOCRIT 34.5 % (37-47); IG% 0.2 %; LYMPH % 27.1 %; LYMPH ABS # 1.33 K/uL (1.2-3.4); MEAN CELL VOLUME 93.8 fL (80-100); MEAN CORPUSCULAR HEMOGLOBIN 31.8 pg (25-34); MEAN CORPUSCULAR HGB CONC 33.9 g/dl (32-36); MEAN PLATELET VOLUME 11.4 fL (7.4-10.4); MONO % 11.4 %; NEUT % 57.8 %; PLATELET COUNT 163 K/uL (130-400); RED BLOOD COUNT 3.68 M/uL (4.2-5.4); WHITE BLOOD COUNT 4.91 K/uL (4.8-10.8)
[2016-08-20 08:15] VITALS: O2SAT 99
[2016-08-20] MEDS: ASPIRIN 325 MG ECTAB PO SCH (08:52)
[2016-08-20] MEDS: DOCUSATE SODIUM 100 MG CAP PO SCH (08:52)
[2016-08-20] MEDS: ATORVASTATIN 20 MG TAB PO SCH (09:44)
[2016-08-20] MEDS: ENOXAPARIN 30 MG/0.3 ML SYR SQ SCH (09:44)
[2016-08-20 10:58] VITALS: BP 145/70; PULSE 62; TEMP 36.7; O2SAT 99
[2016-08-20] MEDS ORDERED: TYL325X PO (12:29)
[2016-08-20] MEDS ORDERED: ULT50X PO (12:29)
--- NOTE | 2016-08-20 12:29 | Progress Note ---
Internal Med Progress Note Date of Service: Aug 20, 2016. Provider Documentation: SUBJECTIVE: Patient 's left shoulder pain is tolerable and using much pain medications. No fever, chills, chest pain, nausea, vomiting, sob Mental status: Awake, oriented to place, person Had a BM yesterday Tolerating PO well OBJECTIVE: Vital Signs-as noted below Exam: Physical Exam: General Appearance:Moderately built and nourished, no apparent distress; AAOX2 Head: normocephalic, Atraumatic Eyes: normal inspection, EOMI, PERRLA, Anicteric Neck: supple, Trachea midline Respiratory/Chest: Normal breath sounds, CTA, No accessory muscle use Cardiovascular: S1, S2, No murmur Abdomen/GI:Soft, Non tender, Bowel sounds present Extremities/Musculoskelatal: Left shoulder- ROM + Neurologic/Psych:AAOX3, grossly no focal neurological deficits. Lab data as noted below. ASSESSMENT & PLAN: ASSESSMENT & PLAN : LEFT HUMERUS FRACTURE (NON DISPLACED) S/P FALL : Patient came in for left shoulder pain after fall. Imaging came back negative for fracture. Got admitted for placement. 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 -Ortho consulted - Recommends conservative approach as non displaced and advanced age--> Sling and follow up in 3 weeks for repeat X ray -Pain management - well controlled on tylenol prn and tramadol prn H/O RECURRENT SMALL BOWEL OBSTRUCTION Recent discharge from [facility] after being treated for SBO -Resolved with conservative management at the time. -Tolerating PO well -Had BM yesterday H/O LV DIASTOLIC DYSFUNCTION -No signs of CHF. -Continue to monitor H/O EPISODIC ELEVATED BP's -BP well controlled -monitor DVT Px: Lovenox SQ CODE STATUS: Full code DISPOSITION: Observation status changed to inpatient as diagnosed with left humerus fracture OKAY TO DISCHARGE TO [facility] Vital Signs: Date Time Temp Pulse Resp B/P Pulse Ox O2 Delivery O2 Flow Rate FiO2 08/20/16 10:58 36.7 62 16 99 Room Air 08/20/16 08:15 99 Room Air 08/20/16 07:22 36.7 62 16 145/70 99 Room Air 08/20/16 00:15 Room Air 08/19/16 23:33 36.7 63 15 120/53 95 Room Air 08/19/16 16:07 Room Air 08/19/16 15:00 36.6 72 16 103/63 96 Room Air Lab Results: Results Past 24 Hours Test 08/20/16 06:54 Range/Units White Blood Count 4.91 4.8-10.8 K/uL Red Blood Count 3.68 4.2-5.4 M/uL Hemoglobin 11.7 12.0-16.0 g/dL Hematocrit 34.5 37-47 % Mean Corpuscular Volume 93.8 80-100 fL Mean Corpuscular Hemoglobin 31.8 25-34 pg Mean Corpuscular Hemoglobin Concent 33.9 32-36 g/dl Platelet Count 163 130-400 K/uL Mean Platelet Volume 11.4 7.4-10.4 fL Neutrophils (%) (Auto) 57.8 % Lymphocytes (%) (Auto) 27.1 % Monocytes (%) (Auto) 11.4 % Eosinophils (%) (Auto) 3.1 % Basophils (%) (Auto) 0.4 % Neutrophils # (Auto) 2.84 1.4-6.5 K/uL Lymphocytes # (Auto) 1.33 1.2-3.4 K/uL Monocytes # (Auto) 0.56 0.11-0.59 K/uL Eosinophils # (Auto) 0.15 0-0.5 K/uL Basophils # (Auto) 0.02 0-0.2 K/uL RDW Standard Deviation 48.8 36.4-46.3 fL RDW Coefficient of Variation 14.2 11.5-14.5 % Immature Granulocyte % (Auto) 0.2 % Immature Granulocyte # (Auto) 0.01 0.00-0.02 K/uL
--- NOTE | 2016-08-20 12:32 | Discharge Instructions ---
Discharge Instructions Admission Reason for Admission: Shoulder Pain, Left Discharge Discharge Diagnosis / Problem: 1. Left proximal humerus fracture (non displaced ) post fall Discharge Goals Goal(s): Decrease discomfort, Improve function Activity Recommendations Activity Limitations: per Instructions/Follow-up section (Sling for Left shoulder/arm x 3 weeks per orthopedics) . Instructions / Follow-Up Instructions / Follow-Up MEDICATION CHANGES: New medication: Tramadol PRN per instructions FOLLOW UP 1. With PCP in [address] Semaj Palmer (Ortho) in 3 weeks for repeat X rays PH: [phone]. Current Hospital Diet Patient's current hospital diet: AHA Diet (Heart Healthy) Discharge Diet Recommended Diet: Regular Diet Pending Studies Studies pending at discharge: no Medical Emergencies . Who to Call and When: Medical Emergencies: If at any time you feel your situation is an emergency, please call 911 immediately. . Non-Emergent Contact Non-Emergency issues call your: Primary Care Provider . . "Provider Documentation" section prepared by Lalita Yousif. VTE Core Measure Inpt VTE Proph given/why not?: Enoxaparin (Lovenox)SQ
--- NOTE | 2016-08-20 12:35 | Discharge Summary ---
Discharge Summary Date of Service Aug 20, 2016. Discharge Summary Admission Date: Aug 18, 2016 at 12:03 Discharge Date: Aug 20, 2016 Discharge Disposition: senior living facility ([facility]) Principal Diagnosis: 1. Left proximal humerus fracture (non displaced) 2. Partial tear of Supraspinatus (left) 3. Fall 4. Physical deconditioning/Ambulatory dysfunction Secondary Diagnoses/Problems: 1. Hx of CHF, Diastolic dysfunction2 2. Hx of recurrent SBO Procedures: MRI left shoulder X ray left shoulder Elbow x ray CXR CT head CT cervical spine PT/OT Consultations: Orthopedics, Dr Palmer Pending Studies/Follow-Up: Instructions / Follow-Up MEDICATION CHANGES: New medication: Tramadol PRN per instructions FOLLOW UP 1. With PCP in [address] Semaj Palmer (Ortho) in 3 weeks for repeat X rays PH: [phone]. Medication Reconciliation New Medications: Acetaminophen (Tylenol) 325 Mg Tab 650 MG PO Q6H PRN for Pain or Fever, #20 TAB Tramadol HCl (Tramadol HCl) 50 Mg Tab 25 MG PO Q6H PRN for Pain for 30 Days, #30 TAB Continued Medications: Aspirin (Aspirin) 325 Mg Tab 325 MG PO QAM, TAB Atorvastatin (Atorvastatin Calcium) 20 Mg Tab 20 MG PO DAILY, #30 Docusate Sodium (Colace) 100 Mg Cap 1 CAP PO BID for 30 Days, #60 CAP Fish Oil (Modoc-3) 1 Ea Cap 1 CAP PO DAILY, CAP Polyethylene Glycol 3350 (Miralax) 1 Pow Pow 17 GM PO DAILY PRN for Constipation for 30 Days, #510 GM Admission Information HPI (per Admitting provider): HISTORY OF PRESENT ILLNESS: Medical history is significant for diastolic dysfunction, hyperlipidemia. Recent confinement about 3 weeks ago for small-bowel obstruction. Resolved with conservative management. Px discharged to [facility] for rehab. As per [facility] discharge note, px oted to have some cognitive impairment on mental status exam, but appears to be capable. Patient was discharged back to her home a few days ago. Yesterday, the patient had a fall, slipped and landed on the left side, painful left shoulder. No chest pain. No shortness of breath. no syncope. Patient was brought to the Emergency Room. Hospital Course ASSESSMENT & PLAN : LEFT HUMERUS FRACTURE (NON DISPLACED) S/P FALL : Patient came in for left shoulder pain after fall. Imaging came back negative for fracture. Got admitted for placement. 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 -Ortho consulted - Recommends conservative approach as non displaced and advanced age--> Sling and follow up in 3 weeks for repeat X ray -Pain management - well controlled on tylenol prn and tramadol prn H/O RECURRENT SMALL BOWEL OBSTRUCTION Recent discharge from [facility] after being treated for SBO -Resolved with conservative management at the time. -Tolerating PO well -Had BM yesterday H/O LV DIASTOLIC DYSFUNCTION -No signs of CHF. -Continue to monitor H/O EPISODIC ELEVATED BP's -BP well controlled -monitor DVT Px: Lovenox SQ CODE STATUS: Full code DISPOSITION: Observation status changed to inpatient as diagnosed with left humerus fracture OKAY TO DISCHARGE TO [facility] Total time spent on discharge = 32 minutes This includes examination of the patient, discharge planning, medication reconciliation, and communication with other providers. Discharge Instructions Activity Recommendations Activity Limitations: per Instructions/Follow-up section (Sling for Left shoulder/arm x 3 weeks per orthopedics) . Instructions / Follow-Up Instructions / Follow-Up MEDICATION CHANGES: New medication: Tramadol PRN per instructions FOLLOW UP 1. With PCP in [address] Semaj Palmer (Ortho) in 3 weeks for repeat X rays PH: [phone]. Current Hospital Diet Patient's current hospital diet: AHA Diet (Heart Healthy) Discharge Diet Recommended Diet: Regular Diet Pending Studies Studies pending at discharge: no Medical Emergencies . Who to Call and When: Medical Emergencies: If at any time you feel your situation is an emergency, please call 911 immediately. . Non-Emergent Contact Non-Emergency issues call your: Primary Care Provider . . "Provider Documentation" section prepared by Lalita Yousif. VTE Core Measure Inpt VTE Proph given/why not?: Enoxaparin (Lovenox)SQ
== END 2016-08-20 12:45 | DRG 563 ==
LOC: ENRESERVDT → ENRESERVTM → EDBD 23:03 → C.EDC 23:05 → C.MSN 08-16 02:57 → OBSVTOIN 08-18 12:03
PROVIDERS: ADMIT Internal Medicine; ATTEND Internal Medicine
DX: S42.295A Other nondisplaced fracture of upper end of left humerus, initial encounter for closed fracture (principal); S46.012A Strain of muscle(s) and tendon(s) of the rotator cuff of left shoulder, initial encounter; W01.0XXA Fall on same level from slipping, tripping and stumbling without subsequent striking against object, initial encounter; Y92.039 Unspecified place in apartment as the place of occurrence of the external cause; R26.9 Unspecified abnormalities of gait and mobility; I51.9 Heart disease, unspecified; I10 Essential (primary) hypertension; E78.5 Hyperlipidemia, unspecified; Z87.19 Personal history of other diseases of the digestive system; Z79.82 Long term (current) use of aspirin

== ENCOUNTER → 2016-09-23 | Outpatient (CLI) | payer OTHER ==
[~2016-09-23] MED LIST changes: +ACET-1311 PO; +AMOX875T PO; +DPRCR15; +FURO-85 PO; +LEVO25TA5 PO; +MENTOIN TOP; +OMEG10002 PO; +ONDA4TAB46 PO; +SKINCRE TOP; +TRAM-10 PO; +TROL10LO TOP; +TYL325X PO; +ULT50X PO; +ZINC40OI13 TOP
[2016-09-23 09:11] LABS: CHOLESTEROL/HDL RATIO 1.9
== END ==
LOC: C.LABCC 08:15
PROVIDERS: ATTEND Internal Medicine
DX: E78.5 Hyperlipidemia, unspecified (principal)

== ENCOUNTER → 2016-10-04 | Outpatient (CLI) | payer OTHER ==
[2016-10-04 09:29] LABS: THYROID STIMULATING HORMONE 4.73 uIu/ml (0.300-4.500)
[2016-10-04 09:33] LABS: ESTIMATED AVERAGE GLUCOSE 94 mg/dl; HA1C FLAG Normal (Normal)
== END ==
LOC: C.LABCC 07:59
PROVIDERS: ATTEND Internal Medicine
DX: R73.9 Hyperglycemia, unspecified (principal)

== ENCOUNTER → 2016-10-08 | Outpatient (CLI) | payer OTHER | LOC: C.LABCC 08:41 | PROVIDERS: ATTEND Internal Medicine | DX: R74.8 Abnormal levels of other serum enzymes (principal) ==

== ENCOUNTER → 2016-12-07 | Outpatient (CLI) | payer OTHER ==
[2016-12-07 10:25] LABS: THYROID STIMULATING HORMONE 4.07 uIu/ml (0.300-4.500)
[2016-12-07 10:42] LABS: ESTIMATED AVERAGE GLUCOSE 100 mg/dl; HA1C FLAG Normal (Normal)
== END | disposition home or self-care (01) ==
LOC: C.LABSPEC 08:11
PROVIDERS: ATTEND Student in an Organized Health Care Education/Training Program
DX: E16.2 Hypoglycemia, unspecified (principal); E03.9 Hypothyroidism, unspecified

== ENCOUNTER → 2017-06-14 | Outpatient (CLI) | payer OTHER ==
[~2017-06-14] MED LIST changes: -AMOX875T PO; -DPRCR15; -OMEG10007 PO; -TYL325X PO; -ULT50X PO
[2017-06-14 08:40] LABS: MEAN CELL VOLUME 94.9 fL (80-100); MEAN CORPUSCULAR HEMOGLOBIN 32.3 pg (25-34); MEAN CORPUSCULAR HGB CONC 34.1 g/dl (32-36); MEAN PLATELET VOLUME 11.4 fL (7.4-10.4); PLATELET COUNT 213 K/uL (130-400); WHITE BLOOD COUNT 6.63 K/uL (4.8-10.8)
[2017-06-14 08:48] LABS: BLOOD UREA NITROGEN 9 mg/dl (7-18); CARBON DIOXIDE 31 mmol/L (21-32); CHLORIDE 102 mmol/L (98-107); CREATININE 0.52 mg/dl (0.60-1.20); GLUCOSE 94 mg/dl (70-99); POTASSIUM 3.5 mmol/L (3.5-5.1); SODIUM 139 mmol/L (136-145)
== END | disposition home or self-care (01) ==
LOC: C.LABWYN 08:17
PROVIDERS: ATTEND Internal Medicine
DX: I11.0 Hypertensive heart disease with heart failure (principal); I50.9 Heart failure, unspecified

== ENCOUNTER → 2018-01-24 | Outpatient (CLI) | payer OTHER ==
[~2018-01-24] MED LIST changes: -LPT/20 PO; +LPT20 PO; +SKIN120C TOP; -SKINCRE TOP
== END | disposition home or self-care (01) ==
LOC: C.LABSPEC 08:46 → C.LABWYN 08:46
PROVIDERS: ATTEND Internal Medicine
DX: I50.9 Heart failure, unspecified (principal); I10 Essential (primary) hypertension